=== PATIENT | male | born 1940 | race Caucasian/White ===

== ENCOUNTER 2020-04-21 06:53 | Outpatient (CLI) | payer MEDICARE, SELFPAY ==
[2020-04-21 07:39] LABS: Basophils Absolute Auto 0.1 K/mm3 (0.0-0.1); Basophils Percent Auto 1.1 % (0.2-1.2); Eosinophils Absolute Auto 0.3 K/mm3 (0-0.3); Eosinophils Percent Auto 4.2 % (0-4.4); Hematocrit 39.6 % (42.0-52.0); Hemoglobin 13.1 g/dL (14.0-18.0); Immature Granulocyte Absolute 0.03 K/mm3 (0.00-0.031); Immature Granulocyte Percent A 0.5 % (0-0.5); Lymphocytes Percent Auto 22.9 % (18.3-44.2); Mean Corpuscular HGB Conc 33.1 g/dl (32-36); Mean Corpuscular Hemoglobin 31.3 pg (26-34); Mean Corpuscular Volume 94.5 fl (80-100); Mean Platelet Volume 8.8 fl (7.4-10.4); Monocytes Absolute Auto 0.9 K/mm3 (0.1-0.6); Neutrophils Absolute Auto 3.4 K/mm3 (1.3-6.7); Neutrophils Percent Auto 56.3 % (45.5-73.1); Platelet Count Result 184 k/mm3 (150-375); Red Blood Count 4.19 M/mm3 (4.6-6.20); Red Cell Distribution Width 13.2 % (11.5-14.5); White Blood Count 6.1 K/mm3 (4.5-10.0)
[2020-04-21 08:02] LABS: Alanine Aminotransferase 18 U/L (4-50); Albumin Level 3.9 g/dL (3.5-5.1); Alkaline Phosphatase 93 U/L (38-126); Anion Gap 3 mmol/L (8-16); Aspartate Amino Transferase 31 U/L (17-59); Bilirubin,Total 1.3 mg/dL (0.2-1.3); Blood Urea Nitrogen 17 mg/dL (9-20); CRP 0.7 mg/dL (<1.0); Calcium 9.2 mg/dL (8.4-10.2); Carbon Dioxide 33 mmol/L (22-30); Chloride 102 mmol/L (98-107); Creatine Kinase 124 U/L (55-170); Estimated Glomerular Filt Rate > 60; Glucose 98 mg/dL (75-110); Potassium 4.8 mmol/L (3.4-5.0); Sodium 138 mmol/L (137-145)
[2020-04-21 08:19] LABS: Erythrocyte Sedimentation Rate 20 mm/hr (0-20)
[2020-04-21 08:26] LABS: Prostate Specific Antigen 1.4 ng/mL (< OR = 4.0)
[2020-04-21 09:39] LABS: Cholesterol 171 mg/dL (0-200); HDL Direct 86 mg/dL; Triglycerides 57 mg/dL (<150)
[2020-04-21 09:50] LABS: LDL Cholesterol Direct 66 mg/dL
[2020-04-21 12:49] LABS: Free T4 Free Thyroxine Reflex 1.05 ng/dL (0.78-2.19)
[2020-04-21 13:45] LABS: Total Triiodothyronine (T3) 1.32 NG/ML (0.97-1.69)
[2020-04-26 22:26] LABS: Anti Nuclear Antibody Titer 1:40 (Negative)
== END 2020-04-21 06:54 | disposition home or self-care (01) ==
PROVIDERS: PCP Family Medicine; Visit Provider Family Medicine
DX: M79.18 Myalgia, other site (principal); I48.0 Paroxysmal atrial fibrillation; G47.33 Obstructive sleep apnea (adult) (pediatric); M79.606 Pain in leg, unspecified; I47.1 Supraventricular tachycardia; Z12.5 Encounter for screening for malignant neoplasm of prostate; E78.5 Hyperlipidemia, unspecified
CPT/HCPCS: 36415; 80053; 80061; 82550; 84153; 84439; 84443; 84480; 85025; 85652; 86038; 86039; 86140; G0103

== ENCOUNTER → 2020-05-30 13:26 | Outpatient (CLI) | payer MEDICARE, SELFPAY ==
--- NOTE | ~2020-05-30 | XR_ITS ---
XR hip BI 2V w AP pelvis 05/30/2020 15:01 Indication: Osteoarthritis. Procedure: AP pelvis and 2 views of each hip Comparison: No prior studies for comparison. Findings: There is mild osteoarthritis of the hips which is symmetric. There are loose bodies lateral to the right hip. The pelvic rings are intact. Sacral foramen are symmetric. No acute fracture or tr aumatic malalignment. There are pelvic phleboliths. Normal mineralization. Sacral foramen are symmetr ic. Impression: 1: Mild symmetric osteoarthritis of the hips with loose bodies lateral to the right hip joint. Reviewed, dictated and finalized at location A. LING EXPERT Impression: 1: Mild symmetric osteoarthritis of the hips with loose bodies lateral to the r ight hip joint.
--- NOTE | ~2020-05-30 | XR_ITS ---
XR hand BI arthritis min 3V 05/30/2020 15:01 Indication: Osteoarthritis Procedure: 4 views of each hand Comparison: 04/29/2018 Findings: There is a foreign body in the left second finger overlying the proximal phalanx. There is mild osteoarthritis of the first MCP joint bilaterally. No acute free air or traumatic malalignment. There is mild osteoarthritis of the first CMC joints bilaterally. Impression: 1: Mild polyarticular osteoarthritis. 2: Small foreign body adjacent to the proximal phalanx of the left second finger. Reviewed, dictated and finalized at location A. EMIC SUPPORT ASSISTANT Impression: 1: Mild polyarticular osteoarthritis. 2: Small foreign body adjacent to the proximal phalanx of the left second fing er.
--- NOTE | ~2020-05-30 | XR_ITS ---
EXAMINATION: XR foot RT standing 2V EXAM DATE: 05/30/2020 15:01 INDICATION: M15.9 - Polyosteoarthritis, unspecified . TECHNIQUE: Frontal and lateral projections of the right foot standing. Correlation is made to contra lateral foot same date. FINDINGS: There is mild right-sided pes planus. There is mild polyarticular primary osteoarthritis. There are no acute fractures or dislocations identified. There is no subcutaneous gas. The soft tis ayad is unremarkable. There are no radiopaque foreign bodies. IMPRESSION: 1. Mild right foot polyarticular osteoarthritis. 2. Mild pes planus. Reviewed, dictated and finalized at location B. E COORDINATOR
--- NOTE | ~2020-05-30 | XR_ITS ---
XR knee RT min 4V, XR knee LT min 4V 05/30/2020 15:01 Indication: Polyarthritis Procedure: 4 views of each knee Comparison: No prior studies for comparison. Findings: There is moderate-severe bilateral osteoarthritis of the knees, medial compartments most af fected bilaterally. No acute fracture or traumatic malalignment. Normal mineralization. No foreign jay dies. Impression: 1: Moderate-severe bilateral osteoarthritis of the knees. 2: Small bilateral knee effusions. Reviewed, dictated and finalized at location A. PRESSURE BOILER TENDER Impression: 1: Moderate-severe bilateral osteoarthritis of the knees. 2: Small bilateral knee effusions. Impression: 1: Moderate-severe bilateral osteoarthritis of the knees. 2: Small bilateral knee effusions.
--- NOTE | ~2020-05-30 | XR_ITS ---
EXAMINATION: XR foot LT standing 2V EXAM DATE: 05/30/2020 15:01 INDICATION: M15.9 - Polyosteoarthritis, unspecified. TECHNIQUE: Frontal and lateral projections of the left foot standing. There is no prior study for c omparison. FINDINGS: Mild left-sided pes planus. There is mild polyarticular primary osteoarthritis. There are no bony erosions identified. There are no acute fractures or dislocations identified. There is no s ubcutaneous gas. The soft tissue is unremarkable. There are no radiopaque foreign bodies. IMPRESSION: 1. Mild polyarticular left foot osteoarthritis. 2. Mild pes planus. Reviewed, dictated and finalized at location B. REPATCHER
== END ==
PROVIDERS: Visit Provider Internal Medicine
DX: M18.0 Bilateral primary osteoarthritis of first carpometacarpal joints (principal); S60.451A Superficial foreign body of left index finger, initial encounter; M16.0 Bilateral primary osteoarthritis of hip; M24.051 Loose body in right hip; M19.072 Primary osteoarthritis, left ankle and foot; M19.071 Primary osteoarthritis, right ankle and foot; M21.41 Flat foot [pes planus] (acquired), right foot; M21.42 Flat foot [pes planus] (acquired), left foot; M17.12 Unilateral primary osteoarthritis, left knee; M25.462 Effusion, left knee; M25.461 Effusion, right knee; R76.8 Other specified abnormal immunological findings in serum
CPT/HCPCS: 73130; 73521; 73564; 73620

== ENCOUNTER 2020-06-01 09:06 | Outpatient (CLI) | payer MEDICARE, SELFPAY ==
[2020-06-01 09:46] LABS: Creatine Kinase 126 U/L (55-170)
[2020-06-01 09:55] LABS: Complement C3 99 mg/dL (88-165); Rheumatoid Factor < 8.6 IU/ML (<12)
[2020-06-04 03:39] LABS: Thyroid Peroxidase Antibodies <1 IU/mL (<9)
[2020-06-04 21:11] LABS: Hexagonal Phase Confirm Negative (Negative); Lupus dRVVT 1:1 Mix Interpreta Not Indicated; Lupus dRVVT Confirmation Negative (Negative); Lupus dRVVT Screen 55 sec (<=45); PTT-LA Screen 44 sec (<=40)
[2020-06-05 02:54] LABS: Aldolase 6.3 U/L (<=8.1)
[2020-06-05 11:28] LABS: SM Antibody <1.0; SM/RNP Antibody <1.0; SS-A <1.0; SS-B <1.0
[2020-06-05 13:50] LABS: Anti Cardio Antibody IgM <12 MPL (<=12); Anti Cardiolipin Antibody IgA <11 APL (<=11); Anti Cardiolipin Antibody IgG <14 GPL (<=14)
[2020-06-07 14:26] LABS: Thyroid Stimulating Immunoglob <89 % baseline (<140)
[2020-06-07 22:54] LABS: Anti Cyclic Citrullinated Pept <16 Units (<20)
== END 2020-06-01 09:07 | disposition home or self-care (01) ==
LOC: ANHLAB 09:12
PROVIDERS: PCP Family Medicine; Visit Provider Internal Medicine
DX: R76.8 Other specified abnormal immunological findings in serum (principal); M15.9 Polyosteoarthritis, unspecified
CPT/HCPCS: 36415; 82085; 82550; 84445; 85597; 85598; 85613; 85730; 86146; 86147; 86160; 86200; 86225; 86235; 86376; 86430

== ENCOUNTER 2020-08-28 11:57 | Outpatient (CLI) | payer MEDICARE, SELFPAY ==
--- NOTE | 2020-08-28 12:37 | ECHO_ITS ---
Patient Info Name: Jac Engel Age: 80 years : 1940 Gender: Male Ht: 70 in Wt: 180 lbs BSA: 2.02 m2 HR: 60 bpm BP: 133 / 80 mmHg Technical Quality: Good Exam Date: 08/28/2020 12:50 PM Exam Location: [facility] Patient Status: Outpatient Admit Date: 08/28/2020 Staff Ordering Physician: Jorgito Mayo DO Immigration Inspector: Joe Kelly RDCS, RT Attending Provider: Jorgito Mayo DO Referring Physician: Gael MOORE; Exam Type: CA echo doppler color flow Study Info Indications I34.1 - Nonrheumatic mitral (valve) prolapse Complete two-dimensional, color flow and Doppler transthoracic echocardiogram is performed. Strain analysis performed. Summary 1. Complete two-dimensional, color flow and Doppler transthoracic echocardiogram is performed. 2. Left ventricular chamber dimension is normal. 3. Left ventricular systolic function is normal, estimated at 60-65%. 4. The left ventricular diastolic function is normal. 5. E/e' 8 is minimally elevated. 6. Global longitudinal strain is normal at -20.3%. 7. Left atrial chamber dimension is moderately enlarged. 8. The mitral valve has moderate bileaflet prolapse. 9. There is mild mitral valve regurgitation. 10. There is mild tricuspid valve regurgitation. 11. No pulmonary hypertension, estimated pulmonary arterial systolic pressure is 36 mmHg. 12. There is trace pulmonic regurgitation. 13. Dilated inferior vena cava with <50% collapse upon inspiration consistent with significantly elevated right atrial pressure, 15 mmHg. Left Ventricle E/e' 8 is minimally elevated. Global longitudinal strain is normal at -20.3%. Left ventricular chamber dimension is normal. Left ventricular systolic function is normal, estimated at 60-65%. The left ventricular diastolic function is normal. Right Ventricle Right ventricular systolic function is normal and with normal TAPSE 3.2 cm. Right ventricular chamber dimension is normal. Left Atria Left atrial chamber dimension is moderately enlarged. Right Atria Right atrial chamber dimension is normal. Aortic Valve The aortic valve is trileaflet. There is no aortic valve stenosis. There is no aortic valve regurgitation. Pulmonic Valve There is trace pulmonic regurgitation. Mitral Valve The mitral valve has moderate bileaflet prolapse. There is no mitral valve stenosis. There is mild mitral valve regurgitation. Tricuspid Valve There is mild tricuspid valve regurgitation. No pulmonary hypertension, estimated pulmonary arterial systolic pressure is 36 mmHg. Pericardium/Pleural There is no pericardial effusion. Inferior Vena Cava Dilated inferior vena cava with <50% collapse upon inspiration consistent with significantly elevated right atrial pressure, 15 mmHg. Aorta The aortic root size at the sinus of Valsalva is normal. Left Ventricular Outflow Tract Name Value Normal LVOT 2D LVOT Diameter 2.0 cm LVOT Doppler LVOT Peak Gradient 4 mmHg LVOT Mean Gradient 2 mmHg LVOT VTI 22 cm LVOT VTI/AV VTI R
== END 2020-08-28 11:58 | disposition home or self-care (01) ==
PROVIDERS: PCP Family Medicine; Visit Provider Internal Medicine Cardiovascular Disease
DX: I34.0 Nonrheumatic mitral (valve) insufficiency (principal); I36.1 Nonrheumatic tricuspid (valve) insufficiency
CPT/HCPCS: 93306

== ENCOUNTER 2020-10-05 09:34 | Outpatient (CLI) | payer MEDICARE, SELFPAY ==
[2020-10-05 10:56] LABS: Total Triiodothyronine (T3) 0.96 NG/ML (0.97-1.69)
[2020-10-05 10:59] LABS: Free T4 Free Thyroxine 1.28 ng/mL (0.78-2.19)
== END 2020-10-05 09:35 | disposition home or self-care (01) ==
PROVIDERS: PCP Family Medicine; Visit Provider Internal Medicine Endocrinology, Diabetes & Metabolism
DX: E03.9 Hypothyroidism, unspecified (principal)
CPT/HCPCS: 36415; 84439; 84443; 84480

== ENCOUNTER 2020-11-16 06:55 | Outpatient (CLI) | payer MEDICARE, SELFPAY ==
[2020-11-16 08:36] LABS: Total Triiodothyronine (T3) 0.95 NG/ML (0.97-1.69)
== END 2020-11-16 06:56 | disposition home or self-care (01) ==
LOC: ANHLAB 06:58
PROVIDERS: PCP Family Medicine; Visit Provider Internal Medicine Endocrinology, Diabetes & Metabolism
DX: E03.9 Hypothyroidism, unspecified (principal)
CPT/HCPCS: 36415; 84439; 84443; 84480

== ENCOUNTER 2021-05-01 06:59 | Outpatient (CLI) | payer MEDICARE, SELFPAY ==
[2021-05-01 08:08] LABS: Basophils Absolute Auto 0.1 K/mm3 (0.0-0.1); Basophils Percent Auto 1.3 % (0.2-1.2); Eosinophils Absolute Auto 0.2 K/mm3 (0-0.3); Hematocrit 38.6 % (42.0-52.0); Hemoglobin 12.4 g/dL (14.0-18.0); Immature Granulocyte Absolute 0.02 K/mm3 (0.00-0.031); Immature Granulocyte Percent A 0.3 % (0-0.5); Lymphocytes Absolute Auto 1.26 K/mm3 (0.9-3.2); Mean Corpuscular HGB Conc 32.1 g/dl (32-36); Mean Corpuscular Hemoglobin 30.9 pg (26-34); Mean Corpuscular Volume 96.3 fl (80-100); Mean Platelet Volume 9.5 fl (7.4-10.4); Monocytes Absolute Auto 0.9 K/mm3 (0.1-0.6); Monocytes Percent Auto 14.7 % (2.6-8.5); Neutrophils Absolute Auto 3.6 K/mm3 (1.3-6.7); Neutrophils Percent Auto 59.7 % (45.5-73.1); Platelet Count Result 204 k/mm3 (150-375); Red Blood Count 4.01 M/mm3 (4.6-6.20); Red Cell Distribution Width 13.2 % (11.5-14.5)
[2021-05-01 08:17] LABS: Alanine Aminotransferase 21 U/L (4-50); Alkaline Phosphatase 99 U/L (38-126); Anion Gap 4 mmol/L (8-16); Aspartate Amino Transferase 36 U/L (17-59); Bilirubin,Total 1.5 mg/dL (0.2-1.3); Blood Urea Nitrogen 16 mg/dL (9-20); Calcium 9.3 mg/dL (8.4-10.2); Carbon Dioxide 30 mmol/L (22-30); Chloride 103 mmol/L (98-107); Cholesterol 157 mg/dL (0-200); Estimated Glomerular Filt Rate > 60; Glucose 90 mg/dL (65-110); HDL Direct 78 mg/dL; Potassium 4.3 mmol/L (3.4-5.0); Sodium 137 mmol/L (137-145); Triglycerides 48 mg/dL (<150)
[2021-05-01 08:28] LABS: LDL Cholesterol Direct 54 mg/dL
[2021-05-01 08:46] LABS: Prostate Specific Antigen 1.6 ng/mL (< OR = 4.0)
[2021-05-01 09:14] LABS: Vitamin D 25 Hydroxy 31.3 ng/mL
== END 2021-05-01 07:00 | disposition home or self-care (01) ==
PROVIDERS: PCP Family Medicine; Visit Provider Family Medicine
DX: E78.5 Hyperlipidemia, unspecified (principal); I48.0 Paroxysmal atrial fibrillation; Z00.00 Encounter for general adult medical examination without abnormal findings; E03.9 Hypothyroidism, unspecified; E55.9 Vitamin D deficiency, unspecified; Z12.5 Encounter for screening for malignant neoplasm of prostate
CPT/HCPCS: 36415; 80053; 80061; 82306; 84153; 84443; 85025; G0103

== ENCOUNTER 2021-07-11 11:14 | Outpatient (CLI) | payer MEDICARE, SELFPAY ==
[2021-07-11 12:05] LABS: Free T4 Free Thyroxine 1.82 ng/mL (0.78-2.19)
[2021-07-11 12:06] LABS: T4 Thyroxine 8.76 ug/dL (5.53-11.0)
[2021-07-11 12:20] LABS: Total Triiodothyronine (T3) 1.05 NG/ML (0.97-1.69)
[2021-07-14 07:50] LABS: Triiodothyronine T3 Free 2.8 pg/mL (2.3-4.2)
== END 2021-07-11 11:15 | disposition home or self-care (01) ==
PROVIDERS: PCP Family Medicine; Visit Provider Internal Medicine Endocrinology, Diabetes & Metabolism
DX: E03.9 Hypothyroidism, unspecified (principal); Z79.899 Other long term (current) drug therapy; E04.9 Nontoxic goiter, unspecified
CPT/HCPCS: 36415; 84436; 84439; 84443; 84480; 84481

== ENCOUNTER 2021-09-26 13:36 | Outpatient (CLI) | payer MEDICARE, SELFPAY ==
--- NOTE | 2021-09-26 13:53 | ECHO_ITS ---
Patient Info Name: Jac Engel Age: 81 years : 1940 Gender: Male Ht: 70 in Wt: 170 lbs BSA: 1.96 m2 HR: 71 bpm BP: 117 / 69 mmHg Technical Quality: Good Exam Date: 09/26/2021 2:12 PM Exam Location: [facility] Patient Status: Outpatient Admit Date: 09/26/2021 Staff Ordering Physician: Jorgito Mayo DO Tomographic Tech: Alison Howard RDCS Attending Provider: Jorgito Mayo DO Referring Physician: Gael MOORE; Exam Type: CA echo dop color flow w con Study Info Indications - non rheumatic mitral valve prolapse Complete two-dimensional, color flow and Doppler transthoracic echocardiogram is performed. Summary 1. Complete two-dimensional, color flow and Doppler transthoracic echocardiogram is performed. 2. Left ventricular chamber dimension is normal. 3. Left ventricular systolic function is normal, estimated at 65-70%. 4. The left ventricular diastolic function is grade II diastolic dysfunction. 5. E/e' 10 is mildly elevated. 6. Global longitudinal strain is normal at -23.6%. 7. Left atrial chamber dimension is moderately enlarged. 8. Right atrial chamber dimension is moderately enlarged. 9. The mitral valve has moderate bileaflet prolapse. 10. There is mild mitral valve regurgitation. 11. There is mild tricuspid valve regurgitation. 12. No pulmonary hypertension, estimated pulmonary arterial systolic pressure is 34 mmHg. 13. There is trace pulmonic regurgitation. 14. Normal inferior vena cava with <50% collapse upon inspiration consistent with elevated right atrial pressure, 10 mmHg. Left Ventricle E/e' 10 is mildly elevated. Global longitudinal strain is normal at -23.6%. Left ventricular chamber dimension is normal. Left ventricular systolic function is normal, estimated at 65-70%. The left ventricular diastolic function is grade II diastolic dysfunction. Right Ventricle Right ventricular chamber dimension is normal. Right ventricular systolic function is normal. Left Atria Left atrial chamber dimension is moderately enlarged. Right Atria Right atrial chamber dimension is moderately enlarged. Aortic Valve The aortic valve is trileaflet. There is no aortic valve stenosis. There is no aortic valve regurgitation. Pulmonic Valve There is trace pulmonic regurgitation. Mitral Valve The mitral valve has moderate bileaflet prolapse. There is no mitral valve stenosis. There is mild mitral valve regurgitation. Tricuspid Valve There is mild tricuspid valve regurgitation. No pulmonary hypertension, estimated pulmonary arterial systolic pressure is 34 mmHg. Pericardium/Pleural There is no pericardial effusion. Inferior Vena Cava Normal inferior vena cava with <50% collapse upon inspiration consistent with elevated right atrial pressure, 10 mmHg. Aorta The aortic root size at the sinus of Valsalva is normal. Left Ventricular Outflow Tract Name Value Normal LVOT 2D LVOT Diameter 2.09 cm LVOT Doppler LVOT Peak Gradient 8 mmHg LVOT Mean Gradient 4 mmHg LVOT VTI 24.75 cm
== END 2021-09-26 13:37 | disposition home or self-care (01) ==
PROVIDERS: PCP Family Medicine; Visit Provider Internal Medicine Cardiovascular Disease
DX: I34.0 Nonrheumatic mitral (valve) insufficiency (principal); I36.1 Nonrheumatic tricuspid (valve) insufficiency
CPT/HCPCS: 93306

== ENCOUNTER 2021-10-24 10:27 | Outpatient (CLI) | payer MEDICARE, SELFPAY ==
[2021-10-24 21:02] LABS: Basophils Absolute Auto 0.1 K/mm3 (0.0-0.1); Basophils Percent Auto 1.6 % (0.2-1.2); Eosinophils Absolute Auto 0.2 K/mm3 (0-0.3); Eosinophils Percent Auto 2.4 % (0-4.4); Hematocrit 39.3 % (42.0-52.0); Hemoglobin 12.1 g/dL (14.0-18.0); Immature Granulocyte Absolute 0.02 K/mm3 (0.00-0.031); Immature Granulocyte Percent A 0.3 % (0-0.5); Lymphocytes Absolute Auto 1.26 K/mm3 (0.9-3.2); Lymphocytes Percent Auto 18.8 % (18.3-44.2); Mean Corpuscular HGB Conc 30.8 g/dl (32-36); Mean Corpuscular Volume 97.3 fl (80-100); Mean Platelet Volume 10.1 fl (7.4-10.4); Monocytes Absolute Auto 0.8 K/mm3 (0.1-0.6); Monocytes Percent Auto 12.4 % (2.6-8.5); Neutrophils Absolute Auto 4.3 K/mm3 (1.3-6.7); Neutrophils Percent Auto 64.5 % (45.5-73.1); Platelet Count Result 182 k/mm3 (150-375); Red Blood Count 4.04 M/mm3 (4.6-6.20); Red Cell Distribution Width 13.9 % (11.5-14.5); White Blood Count 6.7 K/mm3 (4.5-10.0)
[2021-10-24 21:54] LABS: Folic Acid 7.3 ng/mL (2.76->20)
[2021-10-25 00:27] LABS: Iron 100 ug/dL (49-181)
[2021-10-25 00:36] LABS: Percent Iron Saturation 32 % (20-50)
[2021-10-25 17:30] LABS: IFOB Positive Control Positive; Immunochemical Fecal Occult Bl Negative (N)
== END 2021-10-24 10:28 | disposition home or self-care (01) ==
PROVIDERS: PCP Family Medicine; Visit Provider Family Medicine
DX: D64.9 Anemia, unspecified (principal)
CPT/HCPCS: 36415; 82274; 82607; 82728; 82746; 83540; 83550; 85025

== ENCOUNTER 2021-11-21 11:07 | Outpatient (CLI) | payer MEDICARE, SELFPAY ==
[2021-11-21 12:25] LABS: Free T4 Free Thyroxine 1.47 ng/mL (0.78-2.19)
[2021-11-24 06:35] LABS: Triiodothyronine T3 Free 2.8 pg/mL (2.3-4.2)
== END 2021-11-21 11:08 | disposition home or self-care (01) ==
PROVIDERS: PCP Family Medicine; Visit Provider Internal Medicine Endocrinology, Diabetes & Metabolism
DX: E03.9 Hypothyroidism, unspecified (principal); E04.9 Nontoxic goiter, unspecified
CPT/HCPCS: 36415; 84439; 84443; 84481

== ENCOUNTER 2022-01-03 20:02 | Outpatient (NON) | payer MEDICARE, SELFPAY | END 2022-01-03 20:03 | disposition home or self-care (01) | LOC: ANHLAB 20:03 | PROVIDERS: PCP Family Medicine; Visit Provider Nurse Practitioner | DX: R31.9 Hematuria, unspecified (principal) | CPT/HCPCS: 87086 ==

== ENCOUNTER → 2022-01-30 08:04 | Outpatient (CLI) | payer MEDICARE, SELFPAY ==
--- NOTE | ~2022-01-30 | CT_ITS ---
EXAMINATION: CT abdomen pelvis wo/w con DATE: 01/30/2022 08:57 INDICATION: Gross hematuria TECHNIQUE: Computed tomography (CT) of the abdomen and pelvis was performed without and subsequently with 130 CC Omnipaque 350 intravenous contrast. Automated exposure control and iterative reconstructi on technique were employed. Exam dose: 1463.63 mGy-cm total exam DLP. COMPARISON: None. FINDINGS: There is peripheral septal soft tissue thickening and cystic change in the lower lung zones . No consolidation is noted. Cardiomegaly. No pericardial or pleural effusion. Small sliding hiatal hernia. The gallbladder is unremarkable. No bile duct dilatation. No hepatic, splenic, pancreatic space-occup rigo mass lesion or pancreatic duct dilatation. 3 cm right renal cyst. No suspicious solid renal space-occupying mass lesion or filling defect of the renal collecting structures, ureters or urinary bladder is noted. No intraluminal filling defect of the urinary bladder or urinary bladder wall thickening is noted. There is prostate enlargement. Normal caliber of the abdominal aorta. No intraperitoneal or retroperitoneal or pelvic mass lesion or adenopathy or ascites. Normal appendix. There are numerous diverticula in particular the sigmoid colon. No CT evidence of diverticulitis. No bowel obstruction, bowel wall thickening, pneumatosis or intraperitoneal free air is detected. Degenerative spurring of the lower thoracic spine. Severe degenerative disease throughout the lumbar spine. Prominent degenerative change at the apophys eal joints. No suspicious osteolytic or osteoblastic lesions are noted. IMPRESSION: Cardiomegaly Small sliding hiatal hernia 3 cm right renal cyst No urinary tract calculus, obstruction or mass lesion is noted Prostate enlargement Diverticulosis of the colon Reviewed, dictated and finalized at Location A. Reviewed, dictated and finalized at location A. TEACHER
[2022-01-30 08:33] LABS: Estimated Glomerular Filt Rate > 60
== END ==
PROVIDERS: PCP Family Medicine; Visit Provider Urology
DX: R31.0 Gross hematuria (principal); K44.9 Diaphragmatic hernia without obstruction or gangrene; N28.1 Cyst of kidney, acquired; N40.0 Benign prostatic hyperplasia without lower urinary tract symptoms; K57.30 Diverticulosis of large intestine without perforation or abscess without bleeding; I51.7 Cardiomegaly
CPT/HCPCS: 74178; Q9967

== ENCOUNTER 2022-02-21 09:18 | Outpatient (CLI) | payer MEDICARE, SELFPAY ==
--- NOTE | 2022-02-21 09:28 | ECG_ITS ---
Measurements Intervals [place] Rate: 61 P: 43 CO: 185 QRS: 28 QRSD: 145 T: 26 QT: 460 QTc: 465 Interpretive Statements SINUS RHYTHM RIGHT BUNDLE BRANCH BLOCK POSSIBLE LATERAL MYOCARDIAL INFARCTION [30 ms Q WAVE IN I/aVL/V5/V6], OF INDETERMINATE AGE ABNORMAL ECG NO PREVIOUS ECG AVAILABLE FOR COMPARISON Electronically Signed On 02-21-2022 11:27:10 OUTSIDE PRODUCTION INSPECTOR by Dc Dickinson M.D.
[2022-02-21 09:52] LABS: Basophils Absolute Auto 0.1 K/mm3 (0.0-0.1); Eosinophils Absolute Auto 0.2 K/mm3 (0-0.3); Eosinophils Percent Auto 2.5 % (0-4.4); Hematocrit 39.4 % (42.0-52.0); Hemoglobin 12.6 g/dL (14.0-18.0); Immature Granulocyte Absolute 0.03 K/mm3 (0.00-0.031); Immature Granulocyte Percent A 0.4 % (0-0.5); Lymphocytes Absolute Auto 1.33 K/mm3 (0.9-3.2); Lymphocytes Percent Auto 19.3 % (18.3-44.2); Mean Corpuscular Hemoglobin 30.7 pg (26-34); Mean Corpuscular Volume 95.9 fl (80-100); Mean Platelet Volume 9.4 fl (7.4-10.4); Monocytes Percent Auto 15.1 % (2.6-8.5); Neutrophils Absolute Auto 4.3 K/mm3 (1.3-6.7); Neutrophils Percent Auto 61.7 % (45.5-73.1); Platelet Count Result 158 k/mm3 (150-375); Red Blood Count 4.11 M/mm3 (4.6-6.20); Red Cell Distribution Width 13.9 % (11.5-14.5); White Blood Count 6.9 K/mm3 (4.5-10.0)
[2022-02-21 10:11] LABS: Anion Gap 6 mmol/L (8-16); Blood Urea Nitrogen 18 mg/dL (9-20); Calcium 9.1 mg/dL (8.4-10.2); Carbon Dioxide 29 mmol/L (22-30); Chloride 104 mmol/L (98-107); Estimated Glomerular Filt Rate > 60; Glucose 61 mg/dL (65-110); Sodium 139 mmol/L (137-145)
[2022-02-21 10:16] LABS: INR 1.5; Prothrombin Time 17.4 Seconds (11.1-14.7)
[2022-02-21 10:17] LABS: Partial Thromboplastin Time 42.4 SECONDS (22.3-36.8)
== END 2022-02-21 09:19 | disposition home or self-care (01) ==
PROVIDERS: PCP Family Medicine; Visit Provider Urology
DX: C67.9 Malignant neoplasm of bladder, unspecified (principal); I48.0 Paroxysmal atrial fibrillation; Z01.818 Encounter for other preprocedural examination; I45.10 Unspecified right bundle-branch block
CPT/HCPCS: 36415; 80048; 85025; 85610; 85730; 87086; 93005

== ENCOUNTER 2022-02-26 00:30 | Day surgery (SDC) | payer MEDICARE, SELFPAY ==
[2022-02-18 09:31] VITALS: BMI 24.7
--- NOTE | 2022-02-26 08:01 | WPDANESEPPF ---
Anes - Initial Pre Proc Eval Procedure: Operation Date: 02/26/22 09:45 Proposed Procedures p Screening Colonoscopy - Jin Rodarte MD Date/Time: 02/26/22 08:01 Surgeon: Jin Rodarte MD Pre Op Diagnosis: Hx of colon polyps Patient Data Age: 81 Gender: M Height: 1.78 m Weight: 78.2 kg Allergies Allergy/AdvReac Type Severity Reaction Status Date / Time No Known Allergies Allergy Verified 02/26/22 08:38 Home Medications Medication Instructions Recorded Confirmed Type amiodarone 200 mg tablet 100 mg PO .Every other day #30 tabs 12/13/20 02/19/22 Rx cholecalciferol (vitamin D3) 50 50 mcg PO DAILY 05/16/21 02/19/22 History mcg (2,000 unit) capsule rivaroxaban 20 mg tablet (Xarelto) See Rx Instructions .Route 05/21/21 02/26/22 Rx .COMPLEX #90 tabs capsaicin 0.025 % topical cream 1 applic topical BID PRN Pain 11/21/21 02/19/22 History gabapentin 100 mg tablet 200 mg PO TID PRN Pain 01/03/22 02/19/22 History sodium,potassium,mag sulfates 17.5 See Rx Instructions PO .COMPLEX 01/15/22 02/19/22 Rx gram-3.13 gram-1.6 gram oral soln #354 mL (Suprep Bowel Prep Kit) flaxseed 1 ea PO DAILY 02/19/22 02/19/22 History Patient hx anesthesia problems: none Family hx anesthesia problems: none Results Review: All pre-operative results and documents have been reviewed as part of the pre-operative evaluation. [facility] Past Medical History Medical History JAMILAH positive Chronic lower back pain Hypothyroidism Mitral valve prolapse SHAWN (obstructive sleep apnea) PAF (paroxysmal atrial fibrillation) Peripheral neuropathy PSVT (paroxysmal supraventricular tachycardia) 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 Surgical History Surgical History H/O elbow surgery H/O left inguinal hernia repair (~03/1977) H/O right inguinal hernia repair (~12/2001) H/O varicose vein ligation and stripping 2019 History of appendectomy (~1957) History of tonsillectomy (~1950) Family History Family History Sibling Family history of cardiovascular disease Family history of sleep apnea Family history of malignant neoplasm of stomach Family history of malignant neoplasm of gastrointestinal tract Family history of malignant neoplasm of breast Family history of lymphoma Grandparent Family history of malignant neoplasm Family history of primary malignant neoplasm of liver Father Family history of malignant neoplasm of gastrointestinal tract Other Carcinoma of colon Social History Social History Smoking status: Never smoker Second hand tobacco smoke exposure: No Alcohol intake: current Alcohol use details: OCCASIONALLY Substance use: never Substance use type: does not use Living arrangements: with family Additional living arrangements comments: SPOUSE Gender identity (if verbalized by the patient): Male Spiritual care concerns: No Anes - Eval Final PreProcedure Day of Procedure 02/26/22 08:01 Patient weight: normal Heart: regular rate and rhythm Lungs: clear to auscultation and normal air movement Airway: Mallampati scale class II Neurological: alert and oriented Last oral intake: >/= 8 hours ASA classification: III Emergent: no Anesthetic plan: proceed Anesthesia type and monitoring: general GIVS and standard monitoring Results Review: All pre-operative results and documents have been reviewed as part of the pre-operative evaluation. Informed Consent: The patient's anesthetic plan and its attendant risks and benefits were discussed with the patient/family/POA. Questions were solicited and answers provided to the satisfaction of the patient/family/POA.
[2022-02-26 08:40] VITALS: BP 139/73; PULSE 55; RESP 18; TEMP 36.3; O2SAT 100
[2022-02-26] MEDS: LACTATED RINGERS 1,000 ML 150 ML IV CONT (09:04)
--- NOTE | 2022-02-26 09:21 | PM.HPGS ---
History of Present Illness History of Present Illness Consent: Risks, benefits, and alternatives have been discussed and questions answered. Patient agrees to proceed with procedure. Chief complaint: Hx of colon polyps Narrative: Jac Engel is a 81 year old male Presents for screening colonoscopy. Patient has a prior history of colon polyps. Family history is significant his father had colon polyps in several brothers have had colon cancer. Patient reports his current weight appetite and bowel movements are normal. Patient denies abdominal pain. He has had no bleeding. Most recent colonoscopy 2019. Review of Systems Review of Systems: Review of systems noncontributory. [facility] Past Medical History Medical History JAMILAH positive Chronic lower back pain Hypothyroidism Mitral valve prolapse SHAWN (obstructive sleep apnea) PAF (paroxysmal atrial fibrillation) Peripheral neuropathy PSVT (paroxysmal supraventricular tachycardia) 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 Surgical History Surgical History H/O elbow surgery H/O left inguinal hernia repair (~03/1977) H/O right inguinal hernia repair (~12/2001) H/O varicose vein ligation and stripping 2018 History of appendectomy (~1957) History of tonsillectomy (~1950) Family History Family History Sibling Family history of cardiovascular disease Family history of sleep apnea Family history of malignant neoplasm of stomach Family history of malignant neoplasm of gastrointestinal tract Family history of malignant neoplasm of breast Family history of lymphoma Grandparent Family history of malignant neoplasm Family history of primary malignant neoplasm of liver Father Family history of malignant neoplasm of gastrointestinal tract Other Carcinoma of colon Social History Social History Smoking status: Never smoker Second hand tobacco smoke exposure: No Alcohol intake: current Alcohol use details: OCCASIONALLY Substance use: never Substance use type: does not use Living arrangements: with family Additional living arrangements comments: SPOUSE Gender identity (if verbalized by the patient): Male Spiritual care concerns: No Meds Home Medications and Allergies Home Medications Medication Instructions Recorded Confirmed Type amiodarone 200 mg tablet 100 mg PO .Every other day #30 tabs 12/13/20 02/19/22 Rx cholecalciferol (vitamin D3) 50 50 mcg PO DAILY 05/16/21 02/19/22 History mcg (2,000 unit) capsule rivaroxaban 20 mg tablet (Xarelto) See Rx Instructions .Route 05/21/21 02/26/22 Rx .COMPLEX #90 tabs capsaicin 0.025 % topical cream 1 applic topical BID PRN Pain 11/21/21 02/19/22 History gabapentin 100 mg tablet 200 mg PO TID PRN Pain 01/03/22 02/19/22 History sodium,potassium,mag sulfates 17.5 See Rx Instructions PO .COMPLEX 01/15/22 02/19/22 Rx gram-3.13 gram-1.6 gram oral soln #354 mL (Suprep Bowel Prep Kit) flaxseed 1 ea PO DAILY 02/19/22 02/19/22 History Allergies Allergy/AdvReac Type Severity Reaction Status Date / Time No Known Allergies Allergy Verified 02/26/22 08:38 Vital Signs Vital Signs - 24 hr 02/26/22 08:40 Temperature 97.3 F L Pulse Rate 55 L Respiratory Rate 18 Blood Pressure 139/73 Pulse Oximetry 100 Oxygen Delivery Room Air Exam Narrative: Physical exam reveals patient to be alert. Vital signs stable. HEENT exam is unremarkable. Patient is anicteric. Lungs are clear to auscultation and percussion. Heart is without murmur or extra sounds. Abdomen bowel sounds present soft nontender with no organomegaly. Digital external rectal exam is normal. Assessment and Plan Assessment and plan (1) History of colon polyps: [place]
[2022-02-26 10:07] VITALS: BP 105/70; PULSE 57; RESP 18; O2SAT 100
[2022-02-26 10:17] VITALS: BP 115/76; PULSE 56; RESP 16; O2SAT 100
[2022-02-26 10:27] VITALS: BP 114/80; PULSE 54; RESP 15; O2SAT 100
== END 2022-02-26 10:38 | disposition home or self-care (01) ==
PROVIDERS: PCP Family Medicine; Visit Provider Internal Medicine Gastroenterology
PROC: 0DJD8ZZ Inspection of Lower Intestinal Tract, Via Natural or Artificial Opening Endoscopic (ICD-10-PCS; CPT 45378; principal; 2022-02-26 09:45)
DX: Z12.11 Encounter for screening for malignant neoplasm of colon (principal); K64.8 Other hemorrhoids; K57.30 Diverticulosis of large intestine without perforation or abscess without bleeding; Z86.010 Personal history of colon polyps; Z80.0 Family history of malignant neoplasm of digestive organs; I48.0 Paroxysmal atrial fibrillation; E03.9 Hypothyroidism, unspecified; G47.33 Obstructive sleep apnea (adult) (pediatric); I47.1 Supraventricular tachycardia; G62.9 Polyneuropathy, unspecified; I34.1 Nonrheumatic mitral (valve) prolapse; Z79.01 Long term (current) use of anticoagulants
CPT/HCPCS: G0105; 36415; 80048; 85025; 85610; 85730; 87086; 93005; J2704; J7120

== ENCOUNTER 2022-03-05 00:45 | Day surgery (SDC) | payer MEDICARE, SELFPAY ==
[2022-02-19 09:31] VITALS: BMI 25.0
--- NOTE | 2022-02-19 10:01 | PC.NURSE ---
Report to the Outpatient Waiting Room, entrance under the green pavilion located off [facility], at time _10:30AM on date ___03/05/22____. Planned Procedure Time: ___12:30PM . Time changes happen often and if your time is changed the preop area will call you the afternoon before. - You and your visitor will be asked to self-screen and do not enter if you have any COVID symptoms. - Only one visitor is requested with a max of two and NO children visitors are allowed at this time. - The patient visitor may be requested to leave or wait in car when not with patient due to distancing restrictions. - A mask is optional within the hospital. Patients may have clear liquids (water, carbonated beverages, clear teas, apple juice) until 3 hours prior to surgery with a maximum of 20 ounces. - No food from midnight until time of surgery Take the following medications with a SIP of water the morning of surgery: ___AMIODARONE, GABAPENTIN Medications to discontinue per physician ___HOLD XERALTO PER DR DAVIS(PATIENT CALLING OFFICE), HOLD ALL VITAMINS/SUPPLEMENTS 3 DAYS PRE-OP- LAST DOSE 03/01/22____ Please no make-up, nail japanese, hairspray, perfume, deodorant, or body powder the day of surgery. No jewelry (including any body piercings) or valuables the day of surgery, leave them at home. Please take a shower or bath the night before, or the morning of, surgery with an antibacterial soap. Wear comfortable, loose fitting clothing. Children are encouraged to wear pajamas. - Jewelry must be removed prior to entering the operating room. Rings and piercings that are not removed may be cut off. - The hospital will not accept responsibility for valuables. - Please leave all valuables, including medications, at home the day of surgery. If you are going home after surgery, a licensed pile driver operator helper must drive you home. - NO public transportation without another adult if you receive anesthesia. - We recommend that an adult stay with you for 24 hours following discharge. - We also recommend that you do not drive, make important decision, drink alcoholic beverages, or take any drugs that were not prescribed by your health care provider for at least 24 hours after your discharge time. Follow any additional instructions given to you from your surgeon. If you or anyone in your household have experienced Covid symptoms in the past week, please notify your surgeon or the nurse liaison at the phone number below for possible testing. Telephone instructions given to __PATIENT & WIFE and asked if any additional questions and then verbalized understanding. Patient advised to call surgeon office or pre surgery nurse liaison [phone] if any additional questions.
--- NOTE | 2022-03-04 14:06 | WPDANESEPPF ---
Anes - Initial Pre Proc Eval Procedure: Operation Date: 03/05/22 12:30 Proposed Procedures p Cystoscopy, Trans Urethral Resection Bladder Tumor - Ubaldo Delatorre MD Date/Time: 03/04/22 14:06 Surgeon: Ubaldo Delatorre MD Pre Op Diagnosis: gross hematuria , bladder cancer Patient Data Age: 81 Gender: M Height: 1.78 m Weight: 79 kg Allergies Allergy/AdvReac Type Severity Reaction Status Date / Time No Known Allergies Allergy Verified 02/26/22 08:38 Home Medications Medication Instructions Recorded Confirmed Type amiodarone 200 mg tablet 100 mg PO .Every other day #30 tabs 12/13/20 02/19/22 Rx cholecalciferol (vitamin D3) 50 50 mcg PO DAILY 05/16/21 02/19/22 History mcg (2,000 unit) capsule rivaroxaban 20 mg tablet (Xarelto) See Rx Instructions .Route 05/21/21 02/26/22 Rx .COMPLEX #90 tabs capsaicin 0.025 % topical cream 1 applic topical BID PRN Pain 11/21/21 02/19/22 History gabapentin 100 mg tablet 200 mg PO TID PRN Pain 01/03/22 02/19/22 History sodium,potassium,mag sulfates 17.5 See Rx Instructions PO .COMPLEX 01/15/22 02/19/22 Rx gram-3.13 gram-1.6 gram oral soln #354 mL (Suprep Bowel Prep Kit) flaxseed 1 ea PO DAILY 02/19/22 02/19/22 History Patient hx anesthesia problems: none Family hx anesthesia problems: none Results Review: All pre-operative results and documents have been reviewed as part of the pre-operative evaluation. [facility] Past Medical History Medical History JAMILAH positive Chronic lower back pain Hypothyroidism Mitral valve prolapse SHAWN (obstructive sleep apnea) PAF (paroxysmal atrial fibrillation) Peripheral neuropathy PSVT (paroxysmal supraventricular tachycardia) 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 Surgical History Surgical History H/O elbow surgery H/O left inguinal hernia repair (~03/1977) H/O right inguinal hernia repair (~12/2001) H/O varicose vein ligation and stripping 2019 History of appendectomy (~1957) History of tonsillectomy (~1950) Family History Family History Sibling Family history of cardiovascular disease Family history of sleep apnea Family history of malignant neoplasm of stomach Family history of malignant neoplasm of gastrointestinal tract Family history of malignant neoplasm of breast Family history of lymphoma Grandparent Family history of malignant neoplasm Family history of primary malignant neoplasm of liver Father Family history of malignant neoplasm of gastrointestinal tract Other Carcinoma of colon Social History Social History Smoking status: Never smoker Second hand tobacco smoke exposure: No Alcohol intake: current Alcohol use details: OCCASIONALLY Substance use: never Substance use type: does not use Living arrangements: with family Additional living arrangements comments: SPOUSE Gender identity (if verbalized by the patient): Male Spiritual care concerns: No Anes - Eval Final PreProcedure Day of Procedure 03/04/22 14:06 Patient weight: normal Heart: regular rate and rhythm Lungs: clear to auscultation and normal air movement Airway: Mallampati scale class II Neurological: alert and oriented Last oral intake: >/= 8 hours ASA classification: III Emergent: no Anesthetic plan: proceed Anesthesia type and monitoring: general LMA and standard monitoring Results Review: All pre-operative results and documents have been reviewed as part of the pre-operative evaluation. Informed Consent: The patient's anesthetic plan and its attendant risks and benefits were discussed with the patient/family/POA. Questions were solicited and answers provided to the satisfaction of the patient/family/POA.
[2022-03-05] VITALS (10 sets, daily range): BP systolic 126–166; BP diastolic 76–97; PULSE 55–65; RESP 12–18; TEMP 36.1–36.6; O2SAT 94–100
[2022-03-05] MEDS: LACTATED RINGERS 1,000 ML 30 ML IV CONT (11:04)
[2022-03-05 11:24] LABS: INR 1.1; Prothrombin Time 13.8 Seconds (11.1-14.7)
[2022-03-05 11:25] LABS: Partial Thromboplastin Time 35.3 SECONDS (22.3-36.8)
--- NOTE | 2022-03-05 11:50 | WPDHPUPDATE1 ---
History and Physical Update Update Date/Time: 03/05/22 11:50 History and Physical has been reviewed, including an updated exam of the patient. There are NO changes in the patient's condition. Risks, benefits, and alternatives have been discussed and questions answered. Patient agrees to proceed with procedure.
[2022-03-05] MEDS: ceFAZolin 2 GM/D5W 50 ML 2 GM/50 ML BAG IVPB (12:20)
[2022-03-05] MEDS: LIDOCAINE HCL 2% GEL UROJET 10 ML PKG MUCOUS MEM (12:51)
--- NOTE | 2022-03-05 12:51 | P.OP_ITS ---
Procedure Note - Detailed Date of Procedure 03/05/22 Pre-op Diagnosis gross hematuria , bladder lesion Post-op Diagnosis Same Procedure Performed Cystoscopy, urethral dilation, transurethral section of bladder lesion proximally 2 cm area along right lateral and floor of bladder Surgeon Ubaldo Delatorre MD Anesthesia General Description of Procedure Patient is taken the operative suite correctly identified. Once anesthesia was obtained was placed in dorsal lithotomy position and prepped and draped usual sterile fashion. The meatus was dilated up to 26 Wallisian. Twenty-four Wallisian resectoscope sheath was inserted into the bladder direct vision. There were no papillary growths of the fact that he has some irregularity of the lining along the right lateral wall in the floor area. We went ahead and resected some of this area and fulgurated the edges. This was sent for analysis. There was good hemostasis at termination procedure. 2% viscous lidocaine was inserted urethra. Patient taken recovery stable condition he will call for path results in 1 week. Please send a copy this report to my office Estimated Blood Loss 0 Drains No Packing No Pathology Yes Complications No immediate complications Condition Stable Disposition PACU
[2022-03-05] MEDS: fentaNYL CITRATE INJ (*CRX) 100 MCG/2 ML VIAL 25 MCG IV PUSH ×4 (13:28→13:45)
== END 2022-03-05 15:21 | disposition home or self-care (01) ==
PROVIDERS: PCP Family Medicine; Visit Provider Urology
PROC: 0TBB8ZZ Excision of Bladder, Via Natural or Artificial Opening Endoscopic (ICD-10-PCS; CPT 52234; principal; 2022-03-05 12:30)
DX: C67.2 Malignant neoplasm of lateral wall of bladder (principal); I48.0 Paroxysmal atrial fibrillation; E03.9 Hypothyroidism, unspecified; I34.1 Nonrheumatic mitral (valve) prolapse; I47.1 Supraventricular tachycardia; G47.33 Obstructive sleep apnea (adult) (pediatric); G62.9 Polyneuropathy, unspecified; Z79.01 Long term (current) use of anticoagulants
CPT/HCPCS: 52234; 36415; 85610; 85730; 88305; A9270; J0690; J1100; J2405; J2704; J3010; J7120

== ENCOUNTER 2022-03-06 15:33 | Emergency (ER) | payer MEDICARE, SELFPAY ==
[2022-03-06 16:02] VITALS: BP 147/85; PULSE 65; RESP 16; O2SAT 100
--- NOTE | 2022-03-06 16:15 | ED.GENADULT ---
HPI - General Adult General Chief complaint: Urogenital-Male Stated complaint: s/p bladder surgery, urinary retention Time Seen by Provider: 03/06/22 16:02 History of Present Illness HPI narrative: 81-year-old male with history of BPH presented emerged department for evaluation of urinary retention. Patient reports he had a bladder biopsy yesterday by Dr. Delatorre. Patient reports yesterday he did have suprapubic pain but was able to pass urine. Patient states this morning he was able to pass a small amount of urine but had decreased urination through the afternoon. Patient states he has been drinking more water and has had worsening lower abdominal swelling increased abdominal pressure and still has not made urine. Patient did make contact with Dr. Delatorre and he was advised to present to the emergency department. Shortly after arrival to the emergency department a Farias catheter was placed and patient quickly had approximately 400 mL of retained urine. Related Data Home Medications Medication Instructions Recorded Confirmed cholecalciferol (vitamin D3) 50 50 mcg PO DAILY 05/16/21 02/19/22 mcg (2,000 unit) capsule capsaicin 0.025 % topical cream 1 applic topical BID PRN Pain 11/21/21 02/19/22 gabapentin 100 mg tablet 200 mg PO TID PRN Pain 01/03/22 02/19/22 flaxseed 1 ea PO DAILY 02/19/22 02/19/22 Allergies Allergy/AdvReac Type Severity Reaction Status Date / Time No Known Allergies Allergy Verified 03/05/22 11:15 Review of Systems Review of Systems: CONSTITUTIONAL: Denies fever, chills, or sweats. EYES: Denies visual changes, redness, or discharge. ENT: Denies rhinorrhea, congestion, sore throat, or otalgia. CARDIOVASCULAR: Denies chest pain, palpitations, or edema. RESPIRATORY: Denies cough or dyspnea. GASTROINTESTINAL: Denies abdominal pain, nausea, vomiting, or diarrhea. GENITOURINARY: See HPI SKIN: Denies rash or itching. MUSCULOSKELETAL: Denies back pain, joint pain, or myalgia. NEUROLOGIC: Denies headache, numbness, or weakness. [facility] Past Medical History Medical History JAMILAH positive Chronic lower back pain Hypothyroidism Mitral valve prolapse SHAWN (obstructive sleep apnea) PAF (paroxysmal atrial fibrillation) Peripheral neuropathy PSVT (paroxysmal supraventricular tachycardia) 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 Surgical History Surgical History H/O elbow surgery H/O left inguinal hernia repair (~03/1977) H/O right inguinal hernia repair (~12/2001) H/O varicose vein ligation and stripping 2019 History of appendectomy (~1957) History of tonsillectomy (~1950) Family History Family History Sibling Family history of cardiovascular disease Family history of sleep apnea Family history of malignant neoplasm of stomach Family history of malignant neoplasm of gastrointestinal tract Family history of malignant neoplasm of breast Family history of lymphoma Grandparent Family history of malignant neoplasm Family history of primary malignant neoplasm of liver Father Family history of malignant neoplasm of gastrointestinal tract Other Carcinoma of colon Social History Social History Smoking status: Never smoker Second hand tobacco smoke exposure: No Alcohol intake: current Alcohol use details: OCCASIONALLY Substance use: never Substance use type: does not use Additional living arrangements comments: SPOUSE Gender identity (if verbalized by the patient): Male Spiritual care concerns: No Exam Narrative: APPEARANCE: Well appearing, no pain, no distress, well-nourished. HEAD: normocephalic, atraumatic. EYES: PERRLA/EOMI, conjunctivae clear. NOSE: Normal no drainage THROAT: Pharynx clear, no exudate. NECK: Supple. No adenopathy, no
[2022-03-06 17:24] LABS: Add Urine Microscopic? YES; Appearance Urine Clear (Clear); Bilirubin Urine Negative (Negative); Blood Urine 3+ (Negative); Color Urine Yellow (Yellow); Glucose Urine UA Negative (Negative); Ketones Urine Negative (Negative); Leukocyte Esterase Ur Trace LEU/UL (Negative); Nitrate Urine Negative (Negative); Protein Urine 2+ mg/dL (Negative); Specific Grav Ur >= 1.030 (1.001-1.035); Urobilinogen Urine 0.2 mg/dL (<2.0); pH Urine 5.5 (5.0-9.0)
[2022-03-06 17:32] LABS: Bacteria Urine Trace /hpf; Mucus Urine Rare /lpf; RBC Urine >75 /hpf (0-2); Squamous Epithelial Cell Urine Rare /hpf (Few); WBC Urine 51-75 /hpf
[2022-03-06] MEDS: TAMSULOSIN HCL 0.4 MG CAPSULE PO (18:03)
[2022-03-06] MEDS: CEPHALEXIN 250 MG CAPSULE PO (18:03)
--- NOTE | 2022-03-06 18:20 | PC.NURSE ---
pt did not receive, was scanned prior to admin pt already on Bactrim, dr bray stated not to have pt take medication
== END 2022-03-06 19:10 | disposition home or self-care (01) ==
PROVIDERS: Emergency Provider Emergency Medicine; PCP Family Medicine
DX: N40.1 Benign prostatic hyperplasia with lower urinary tract symptoms (principal); R33.8 Other retention of urine; N39.0 Urinary tract infection, site not specified; Z98.890 Other specified postprocedural states; I48.0 Paroxysmal atrial fibrillation; I34.1 Nonrheumatic mitral (valve) prolapse; E03.9 Hypothyroidism, unspecified; G47.33 Obstructive sleep apnea (adult) (pediatric); G62.9 Polyneuropathy, unspecified; Z79.01 Long term (current) use of anticoagulants
CPT/HCPCS: 51702; 81001; 87086; 99283; A9270

== ENCOUNTER 2022-03-08 15:21 | Emergency (ER) | payer MEDICARE, SELFPAY ==
--- NOTE | ~2022-03-08 | XR_ITS ---
EXAMINATION: XR hand LT min 3V, XR hand RT min 3V DATE: 03/08/2022 22:43 INDICATION: Bilateral thumb pain TECHNIQUE: 1. Posteroanterior, oblique and lateral views of the left hand were obtained. 2. Posteroanterior, oblique and lateral views of the right hand were obtained. COMPARISON: None. FINDINGS: Bone alignment is normal at the bilateral hands. No fractures. Polyarticular osteoarthritis moderate severity at the bilateral triscaphe and first carpometacarpal joints and mild at several of the bilat eral interphalangeal joints with distal predominance. There is also severe osteoarthritis at the left wrist joint and mild osteoarthritis at the left wrist joint. Unchanged tiny metallic foreign body in the soft tissues at the palmar/radial aspect of the left second proximal phalanx. IMPRESSION: 1. Polyarticular osteoarthritis at the bilateral hands and wrists, moderate severity at the bilateral triscaphe and first carpal metacarpal joints and severe at the left wrist joint. Reviewed, dictated and finalized at location A. NICAL PROJECT COORDINATOR IMPRESSION: 1. Polyarticular osteoarthritis at the bilateral hands and wrists, moderate sev erity at the bilateral triscaphe and first carpal metacarpal joints and severe at the left wrist joint.
[2022-03-08 15:55] VITALS: BP 140/72; PULSE 78; RESP 18; TEMP 37.1; O2SAT 100
[2022-03-08 20:30] VITALS: BP 147/92; PULSE 78; RESP 18; TEMP 36.8; O2SAT 97
[2022-03-08 22:00] VITALS: BP 152/97; PULSE 79; RESP 18; TEMP 36.6; O2SAT 97
--- NOTE | 2022-03-08 22:26 | ED.GENADULT ---
HPI - General Adult General Chief complaint: Weakness Stated complaint: bladder sx friday Time Seen by Provider: 03/08/22 21:13 History of Present Illness HPI narrative: This is a 81-year-old male presenting ED with a chief complaint of bilateral thumb pain. Patient says he woke up from sleep this morning with pain in his thumbs. Patient has a history of osteoarthritis and uses his hands to transfer himself as he has bad peripheral neuropathy. Patient also notes that he had a bladder surgery earlier this week. the patient says that has been going well although he has not been moving around very much due to pain. Patient denies fever, trauma, neck injury. He denies history of gout. Patient took his tramadol when he woke up but did not take his afternoon dose. Patient denies any other complaints at this time. Related Data Home Medications Medication Instructions Recorded Confirmed cholecalciferol (vitamin D3) 50 50 mcg PO DAILY 05/16/21 02/19/22 mcg (2,000 unit) capsule capsaicin 0.025 % topical cream 1 applic topical BID PRN Pain 11/21/21 02/19/22 gabapentin 100 mg tablet 200 mg PO TID PRN Pain 01/03/22 02/19/22 flaxseed 1 ea PO DAILY 02/19/22 02/19/22 Allergies Allergy/AdvReac Type Severity Reaction Status Date / Time No Known Allergies Allergy Verified 03/05/22 11:15 Review of Systems Review of Systems: CONSTITUTIONAL: Denies night sweats. EYES: No eye pain ENT: Denies rhinorrhea CARDIOVASCULAR: Denies palpitations RESPIRATORY: Denies hemoptysis GASTROINTESTINAL: Denies hematemesis GENITOURINARY: Denies hematuria. SKIN: Denies rash MUSCULOSKELETAL: Denies myalgia. NEUROLOGIC: Denies weakness. PSYCHIATRIC: Denies delusions [facility] Past Medical History Medical History JAMILAH positive Chronic lower back pain Hypothyroidism Mitral valve prolapse SHAWN (obstructive sleep apnea) PAF (paroxysmal atrial fibrillation) Peripheral neuropathy PSVT (paroxysmal supraventricular tachycardia) 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 Surgical History Surgical History H/O elbow surgery H/O left inguinal hernia repair (~03/1977) H/O right inguinal hernia repair (~12/2001) H/O varicose vein ligation and stripping 2019 History of appendectomy (~1957) History of tonsillectomy (~1950) Family History Family History Sibling Family history of cardiovascular disease Family history of sleep apnea Family history of malignant neoplasm of stomach Family history of malignant neoplasm of gastrointestinal tract Family history of malignant neoplasm of breast Family history of lymphoma Grandparent Family history of malignant neoplasm Family history of primary malignant neoplasm of liver Father Family history of malignant neoplasm of gastrointestinal tract Other Carcinoma of colon Social History Social History Smoking status: Never smoker Second hand tobacco smoke exposure: No Alcohol intake: current Alcohol use details: OCCASIONALLY Substance use: never Substance use type: does not use Additional living arrangements comments: SPOUSE Gender identity (if verbalized by the patient): Male Spiritual care concerns: No Exam Narrative: APPEARANCE: No apparent distress. Head: atraumatic. EYES: EOMI, NOSE: Atraumatic NECK: Trachea midline RESPIRATORY: No increased rate of breathing CARDIOVASCULAR: RRR, +1 pitting edema lower extremities. ABDOMINAL: Non-distended MUSCULOSKELETAl: No obvious deformities Focal exam of the patient's thumbs revealed no overlying skin changes or erythema. Tenderness over the base of the thumb. Slightly warm to touch. Cap refill is less than 2 seconds. Strength is intact. Patient has enlarged knuckles from chronic are osteo
[2022-03-08] MEDS: traMADol HCL (*CRX) 50 MG TABLET PO (22:32)
[2022-03-08] MEDS: ACETAMINOPHEN 500 MG TABLET 1000 MG PO (22:33)
[2022-03-08 22:50] VITALS: BP 142/79; PULSE 76; RESP 18; TEMP 36.8; O2SAT 98
--- NOTE | 2022-03-08 22:50 | PC.NURSE ---
Patient spouse and daughter in room complaints of vital signs not staying on patients arm. Explained to patient family that patient vital signs have been obtained (in their presence) and that I didnt leave the blood pressure cuff on patient due to extreme pain to hands while blood pressure cuff is pumping. Patient spouse verbalized understanding.
[2022-03-08 23:55] VITALS: BP 133/76; PULSE 74; RESP 18; TEMP 36.9; O2SAT 95
== END 2022-03-08 23:57 | disposition home or self-care (01) ==
PROVIDERS: Emergency Provider Emergency Medicine; PCP Family Medicine
DX: M79.645 Pain in left finger(s) (principal); M79.644 Pain in right finger(s); K59.00 Constipation, unspecified; G62.9 Polyneuropathy, unspecified; I48.0 Paroxysmal atrial fibrillation; I34.1 Nonrheumatic mitral (valve) prolapse; E03.9 Hypothyroidism, unspecified; G47.33 Obstructive sleep apnea (adult) (pediatric); M19.042 Primary osteoarthritis, left hand; M19.041 Primary osteoarthritis, right hand; M19.032 Primary osteoarthritis, left wrist; M19.031 Primary osteoarthritis, right wrist; M18.9 Osteoarthritis of first carpometacarpal joint, unspecified
CPT/HCPCS: 73130; 99284; A9270

== ENCOUNTER 2022-03-09 23:37 | Inpatient (IN) | payer MEDICARE, SELFPAY ==
--- NOTE | ~2022-03-09 | CT_ITS ---
EXAMINATION: CT abdomen pelvis wo/w con DATE: 03/10/2022 13:16 INDICATION: Abdominal pain and tenderness post urologic surgery TECHNIQUE: Computed tomography (CT) of the abdomen and pelvis was performed without intravenous contr ast. CT of the abdomen and pelvis was then performed with a total of 130 mL Omnipaque 350 intravenous contrast using a double-bolus technique for simultaneous opacification of the renal parenchyma and r enal collecting system. The dose-length product (DLP) was 801.41 mGy-cm. Automated exposure control a nd iterative reconstruction technique were employed. COMPARISON: 01/30/2022 FINDINGS: Cardiomegaly is noted. There is mild pulmonary edema in the visualized lung bases. There ar e trace pleural effusions. A small sliding hiatal hernia is noted. There is mild nodularity of the li beena surface. The gallbladder is distended which may be due to fasting state. The spleen and adrenal g lands are normal. A calcification in the tail of the pancreas likely reflects chronic pancreatitis. N o stones are identified in the kidneys, ureters, or bladder. No hydronephrosis or hydroureter. There is a 3.0 cm cyst of the right kidney. The left kidney is unremarkable. There is gas in the urinary bl adder. There appears to be an approximately 18 mm mm defect in the right lateral bladder wall with a small amount of adjacent extravasated urine. No pathologically enlarged abdominal or pelvic lymph nod es are identified. There is no free intraperitoneal gas or evidence of bowel obstruction. A Farias cat heter is noted in the bladder. There is a left inguinal hernia containing fat. There is moderate lumb ar spondylosis. A moderate volume of colonic stool is present. IMPRESSION: 1. Apparent 18 mm defect in the right lateral bladder wall, likely site of recent bladder tumor resec tion, with a small amount of adjacent extravasated urine. Reviewed, dictated and finalized at location A. TRYMAN IMPRESSION: 1. Apparent 18 mm defect in the right lateral bladder wall, likely site of rece nt bladder tumor resection, with a small amount of adjacent extravasated urine.
[2022-03-09 23:41] VITALS: BP 121/99; PULSE 74; RESP 18; TEMP 36.9; O2SAT 100
--- NOTE | 2022-03-10 00:29 | ED.MALEGU ---
HPI - Male Genitourinary General Chief complaint: Urogenital-Male Stated complaint: cath full of blood Time Seen by Provider: 03/09/22 23:57 History of Present Illness HPI Narrative: Patient is a 81-year-old male who presents ER with hematuria. He noticed some discoloration this afternoon and then tonight upon going to bed he noticed that it was bright red. No urinary retention. No blood clots. Patient recently had a cystoscopy with urethral dilatation and bladder tumor excision on 03/05/2022. He restarted his Xarelto on 03/08/2022. No fevers or chills or sweats. No lower abdominal pain. Related Data Home Medications Medication Instructions Recorded Confirmed cholecalciferol (vitamin D3) 50 50 mcg PO DAILY 05/16/21 02/19/22 mcg (2,000 unit) capsule capsaicin 0.025 % topical cream 1 applic topical BID PRN Pain 11/21/21 02/19/22 gabapentin 100 mg tablet 200 mg PO TID PRN Pain 01/03/22 02/19/22 flaxseed 1 ea PO DAILY 02/19/22 02/19/22 Allergies Allergy/AdvReac Type Severity Reaction Status Date / Time No Known Allergies Allergy Verified 03/05/22 11:15 Review of Systems Review of Systems: All systems reviewed & are unremarkable except as noted in HPI and below Constitutional: Constitutional: Denies chills, Denies fatigue and Denies fever(s) Cardiovascular: Cardiovascular: Denies chest pain and Denies radiating jaw, neck or arm pain Respiratory: Respiratory: Denies cough and Denies dyspnea Gastrointestinal: Gastrointestinal: Denies abdominal pain, Denies nausea and Denies vomiting Genitourinary: Genitourinary: Reports hematuria, Denies dysuria, Denies penile discharge and Denies testicular pain [facility] Past Medical History Medical History JAMILAH positive Chronic lower back pain Hypothyroidism Mitral valve prolapse SHAWN (obstructive sleep apnea) PAF (paroxysmal atrial fibrillation) Peripheral neuropathy PSVT (paroxysmal supraventricular tachycardia) 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 Surgical History Surgical History H/O elbow surgery H/O left inguinal hernia repair (~03/1977) H/O right inguinal hernia repair (~12/2001) H/O varicose vein ligation and stripping 2019 History of appendectomy (~1957) History of tonsillectomy (~1950) Family History Family History Sibling Family history of cardiovascular disease Family history of sleep apnea Family history of malignant neoplasm of stomach Family history of malignant neoplasm of gastrointestinal tract Family history of malignant neoplasm of breast Family history of lymphoma Grandparent Family history of malignant neoplasm Family history of primary malignant neoplasm of liver Father Family history of malignant neoplasm of gastrointestinal tract Other Carcinoma of colon Social History Social History Smoking status: Never smoker Second hand tobacco smoke exposure: No Alcohol intake: current Alcohol use details: OCCASIONALLY Substance use: never Substance use type: does not use Additional living arrangements comments: SPOUSE Gender identity (if verbalized by the patient): Male Spiritual care concerns: No Exam Narrative: GENERAL: Well-appearing, well-nourished, and in no acute distress. HEAD: Normocephalic, atraumatic. EYES: PERRL and EOMI. CHEST: Clear to auscultation. No respiratory distress. HEART: Regular rate and rhythm. Normal peripheral pulses. ABDOMEN: Soft, nontender, nondistended. EXTREMITIES: Normal range of motion. 1+ edema. SKIN: Warm, dry, no rash. NEURO: Alert and oriented x3. PSYCH: Normal mood and affect. Course Course Emergency Course: CBI initiated. Some clots were removed. When clamped it still becomes dark blood however it is much multiple earlier. Discus
[2022-03-10 00:46] LABS: Basophils Absolute Auto 0.1 K/mm3 (0.0-0.1); Eosinophils Absolute Auto 0.2 K/mm3 (0-0.3); Eosinophils Percent Auto 2.8 % (0-4.4); Hematocrit 34.7 % (42.0-52.0); Hemoglobin 11.5 g/dL (14.0-18.0); Immature Granulocyte Absolute 0.03 K/mm3 (0.00-0.031); Immature Granulocyte Percent A 0.4 % (0-0.5); Lymphocytes Absolute Auto 1.09 K/mm3 (0.9-3.2); Lymphocytes Percent Auto 16.3 % (18.3-44.2); Mean Corpuscular HGB Conc 33.1 g/dl (32-36); Mean Corpuscular Hemoglobin 30.9 pg (26-34); Mean Corpuscular Volume 93.3 fl (80-100); Mean Platelet Volume 9.3 fl (7.4-10.4); Monocytes Absolute Auto 1.1 K/mm3 (0.1-0.6); Monocytes Percent Auto 17.1 % (2.6-8.5); Neutrophils Absolute Auto 4.2 K/mm3 (1.3-6.7); Neutrophils Percent Auto 62.4 % (45.5-73.1); Platelet Count Result 182 k/mm3 (150-375); Red Blood Count 3.72 M/mm3 (4.6-6.20); Red Cell Distribution Width 13.3 % (11.5-14.5); White Blood Count 6.7 K/mm3 (4.5-10.0)
[2022-03-10 00:56] LABS: INR 2.9; Prothrombin Time 29.7 Seconds (11.1-14.7)
[2022-03-10 00:56] LABS: Anion Gap 4 mmol/L (8-16); Blood Urea Nitrogen 19 mg/dL (9-20); Calcium 8.7 mg/dL (8.4-10.2); Carbon Dioxide 27 mmol/L (22-30); Chloride 97 mmol/L (98-107); Estimated CRCL calculation 67 ml/min; Estimated Glomerular Filt Rate > 60; Glucose 113 mg/dL (65-110); Potassium 4.1 mmol/L (3.4-5.0); Sodium 128 mmol/L (137-145)
[2022-03-10 00:57] LABS: Appearance Urine Clear (Clear); Bilirubin Urine Negative (Negative); Blood Urine 3+ (Negative); Glucose Urine UA Trace mg/dL (Negative); Ketones Urine 1+ mg/dL (Negative); Leukocyte Esterase Ur 2+ LEU/UL (Negative); Nitrate Urine Positive (Negative); Protein Urine 3+ mg/dL (Negative); pH Urine 6.5 (5.0-9.0)
[2022-03-10 00:57] LABS: Partial Thromboplastin Time 71.4 SECONDS (22.3-36.8)
[2022-03-10 00:59] LABS: Mucus Urine Rare /lpf; RBC Urine >75 /hpf (0-2); WBC Urine 31-50 /hpf
[2022-03-10 01:04] LABS: Add Urine Microscopic? YES; Color Urine Dark Red (Yellow)
[2022-03-10 03:29] VITALS: BP 132/74; PULSE 77; RESP 16; TEMP 36.1; O2SAT 98
[2022-03-10 05:30] VITALS: BP 124/76; PULSE 72; RESP 18; O2SAT 96
[2022-03-10 06:15] LABS: Influenza A QL RT-PCR Negative (Negative); Influenza B QL RT-PCR Negative (Negative); SARS-CoV-2 RNA PCR Negative
[2022-03-10 07:17] VITALS: BP 137/75; PULSE 97; RESP 18; O2SAT 96
--- NOTE | 2022-03-10 09:16 | ADMGEN ---
This patient, Jac Engel, was admitted to 3 Med Surg Room 319-01. Patient/family oriented to hospital policies and general routines including ID bracelet, bed and alarms, visiting hours, pain management, procedures, bathroom and other care routines, personal items, smoking policy, room service/diet, and visiting hours. Information on how to activate the Rapid Response Team has been discussed. Patient/Family are encouraged to report perceived risks to care and to ask questions if they do not understand what they are told or what they should do.
[2022-03-10 09:17] VITALS: BMI 25.1
--- NOTE | 2022-03-10 09:27 | WPDURCON ---
Assessment and Plan Assessment and plan (1) Hematuria: Code(s): R31.9 - Hematuria, unspecified Status: Acute Assessment and Plan: 1. Continue CBI, urine appears to be clearing based on report from patient and review of chart. 2. Agree with holding Xarelto at this time. 3. CT urogram now given abdominal tenderness, there are no signs of peritonitis, however patient reports TTP of lower quadrants. 4. NPO p MN in case clot evacuation needed. Urology Consult Note HPI Date Seen: 03/10/22 Requesting Physician: John Grady MD Primary Care Provider: Laurie Bryan MD Consult Narrative Narrative: Jac Engel is a 81 year old male who presented overnight with hematuria requiring initiation of continuous bladder irrigation in the ER. He underwent TURBT with Dr. Delatorre on Friday of last week, restarted his Xarelto on Friday. He has required a Farias catheter for retention since his procedure. Review of Systems Constitutional: Constitutional: Reports no additional constitutional complaints Eyes: Eyes: Reports no additional eye complaints ENT: Reports system reviewed and no additional complaints, except as documented Respiratory: Respiratory: Reports no additional respiratory complaints Gastrointestinal: Gastrointestinal: Reports no additional gastrointestinal complaints Genitourinary: Genitourinary: Reports as per HPI and Reports hematuria Musculoskeletal: Musculoskeletal: Reports as per HPI Integumentary/Breasts: Skin/Breast: Reports system reviewed and no additional complaints, except as docu Neurologic: Reports system reviewed and no additional complaints, except as documented Psychiatric: Psychiatric: Reports no additional psychiatric complaints [facility] Past Medical History Medical History JAMILAH positive Chronic lower back pain Hypothyroidism Mitral valve prolapse SHAWN (obstructive sleep apnea) PAF (paroxysmal atrial fibrillation) Peripheral neuropathy PSVT (paroxysmal supraventricular tachycardia) 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 Surgical History Surgical History H/O elbow surgery H/O left inguinal hernia repair (~03/1977) H/O right inguinal hernia repair (~12/2001) H/O varicose vein ligation and stripping 2019 History of appendectomy (~1957) History of tonsillectomy (~1950) Family History Family History Sibling Family history of cardiovascular disease Family history of sleep apnea Family history of malignant neoplasm of stomach Family history of malignant neoplasm of gastrointestinal tract Family history of malignant neoplasm of breast Family history of lymphoma Grandparent Family history of malignant neoplasm Family history of primary malignant neoplasm of liver Father Family history of malignant neoplasm of gastrointestinal tract Other Carcinoma of colon Social History Social History Smoking status: Never smoker Second hand tobacco smoke exposure: No Alcohol intake: current Alcohol use details: OCCASIONALLY Substance use: never Substance use type: does not use Additional living arrangements comments: SPOUSE Gender identity (if verbalized by the patient): Male Spiritual care concerns: No Meds Home Medications and Allergies Home Medications Medication Instructions Recorded Confirmed Type amiodarone 200 mg tablet 100 mg PO .Every other day #30 tabs 12/13/20 02/19/22 Rx cholecalciferol (vitamin D3) 50 50 mcg PO DAILY 05/16/21 02/19/22 History mcg (2,000 unit) capsule capsaicin 0.025 % topical cream 1 applic topical BID PRN Pain 11/21/21 02/19/22 History gabapentin 100 mg tablet 200 mg PO TID PRN Pain 01/03/22 02/19/22 History sodium,potassium,mag sulfates 17.5 See Rx Instruct
--- NOTE | 2022-03-10 10:00 | PM.IMHP ---
H&P: HPI History of Present Illness Date/Time: 03/10/22 11:47 Chief Complaint: blood in the urine Narrative: Patient is 81-year-old male with past medical history of hypothyroidism, mitral valve prolapse, SHAWN, peripheral neuropathy who presented to the ED with complaints of hematuria. Patient stated that he had a TURP done last Friday. He stated that he has not been able to void on his own and had a catheter since. He also stated that he was recently in the ED because his hands hurt he could lift himself off the chair to get himself moving around. He then said that he is back with bloody urine. He stated that he went to go empty the bag and he noticed that the color change to more of a brown color. He did ask his which she thought of and she 2 also thought it was blood. Patient does take Xarelto and thinks that his last dose was Friday however he does seem to have his days a little confused. He also stated that Friday was his best day and he was doing well he was able to get around move around. He denied any chest pain, shortness a breath, sweats, fevers, lightheadedness, dizziness, weakness, nausea, vomiting, diarrhea, constipation. He did state that he has had a little bit of chills since he has been in the hospital however seems to be his normal. He does state that he has little bit of pain in his lower abdomen however cannot give me any details about it. He also stated his last bowel movement was before his procedure last Friday. He also stated that he has had an increased appetite and has been eating and doing well since the bloody urine. Patient is being admitted to the hospitalist service as an inpatient Review of Systems Review of Systems: All systems reviewed & are unremarkable except as noted in HPI and below PMFSH Past Medical History Medical History (Updated 03/10/22 @ 11:56 by RIMMA Lion) JAMILAH positive Anemia Bilateral lower extremity pain Chronic lower back pain Family hx of colon cancer Hematuria History of colon polyps Hypothyroidism Mitral valve prolapse On amiodarone therapy SHAWN (obstructive sleep apnea) PAF (paroxysmal atrial fibrillation) Peripheral neuropathy PSVT (paroxysmal supraventricular tachycardia) 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 Surgical History Surgical History H/O elbow surgery H/O left inguinal hernia repair (~03/1977) H/O right inguinal hernia repair (~12/2001) H/O varicose vein ligation and stripping 2019 History of appendectomy (~1957) History of tonsillectomy (~1950) Family History Family History Sibling Family history of cardiovascular disease Family history of sleep apnea Family history of malignant neoplasm of stomach Family history of malignant neoplasm of gastrointestinal tract Family history of malignant neoplasm of breast Family history of lymphoma Grandparent Family history of malignant neoplasm Family history of primary malignant neoplasm of liver Father Family history of malignant neoplasm of gastrointestinal tract Other Carcinoma of colon Social History Social History (Updated 03/10/22 @ 11:52 by RIMMA Lion) Social History: patient lives at home with his Katy Samuels. Katy Samuels will be his surrogate if needed. He also stated that he has a living well. He does have 3 children. He denies having any pets. He wishes to be a full code for now. Smoking status: Never smoker Second hand tobacco smoke exposure: No Alcohol intake: current Drinks per week: 0 Alcohol use details: OCCASIONALLY only through special events Substance use: never Substance use type: does not use Lack of Transportation: No Lack of Food: Never True Current Housing: I Have Housing Concerned About Future Housing: No Difficulty Paying Gas/Electric Bills: No Difficulty Paying for Me
[2022-03-10 10:48] LABS: NT Pro B Type Natriuretic Pept 538 pg/mL (5-100)
[2022-03-10 14:00] VITALS: BP 153/89; PULSE 66; RESP 20; TEMP 35.9; O2SAT 96
[2022-03-10] MEDS: ACETAMINOPHEN 325 MG TABLET 650 MG PO ×2 (17:04→21:59)
[2022-03-10] MEDS: DOCUSATE SODIUM 100 MG CAPSULE PO (21:59)
[2022-03-10 22:00] VITALS: BP 136/73; PULSE 69; RESP 18; TEMP 36.6; O2SAT 100
[2022-03-11] MEDS: HYDROcodone/acetaminophen (*CRX) 5-325 MG TABLET 1 TAB PO (03:30)
[2022-03-11 05:54] VITALS: BP 138/68; PULSE 81; RESP 18; TEMP 36.5; O2SAT 98
[2022-03-11 06:50] LABS: Alanine Aminotransferase 16 U/L (6-50); Albumin Level 3.6 g/dL (3.5-5.1); Alkaline Phosphatase 81 U/L (38-126); Anion Gap 3 mmol/L (8-16); Aspartate Amino Transferase 33 U/L (17-59); Bilirubin,Total 0.8 mg/dL (0.2-1.3); Blood Urea Nitrogen 12 mg/dL (9-20); Calcium 8.3 mg/dL (8.4-10.2); Carbon Dioxide 27 mmol/L (22-30); Chloride 103 mmol/L (98-107); Estimated CRCL calculation 67 ml/min; Estimated Glomerular Filt Rate > 60; Glucose 102 mg/dL (65-110); Potassium 4.1 mmol/L (3.4-5.0); Sodium 133 mmol/L (137-145)
--- NOTE | 2022-03-11 08:32 | WPDUROPN2 ---
Progress Note: A&P Assessment and Plan (1) Hematuria: Code(s): R31.9 - Hematuria, unspecified Status: Acute Assessment and Plan: resolved. If urine remains clear can cap inflow of CBI and send home with catheter. I would wait to restart anticoagulation for 3 or 4 days. I discussed with family and patient that the urine may alternate between bloody and clear. as long as the catheter is draining there is no need for intervention (2) History of bladder cancer: Code(s): Z85.51 - Personal history of malignant neoplasm of bladder Status: Acute (3) Extraperitoneal rupture of bladder: Code(s): N32.89 - Other specified disorders of bladder Status: Acute Assessment and Plan: home with Farias catheter x1 week. Outpatient follow-up with Dr. Delatorre Subjective Subjective Date/Time Seen: 03/11/22 08:32 urine is clear with the CBI off discussed with patient and family member Exam Narrative: no acute distress normal breathing Farias catheter with clear yellow urine and CBI on abdomen soft without rebound or guarding Objective Data Vital Signs Vital Signs: Vital Signs - 24 hr 03/10/22 14:00 03/10/22 22:00 03/11/22 00:23 Temperature 96.6 F L 98 F Pulse Rate 66 69 Respiratory Rate 20 18 Blood Pressure 153/89 H 136/73 Pulse Oximetry 96 100 Oxygen Delivery CPAP 03/11/22 05:54 Temperature 97.7 F Pulse Rate 81 Respiratory Rate 18 Blood Pressure 138/68 Pulse Oximetry 98 Oxygen Delivery Intake/Output Intake/Output: Intake & Output 03/08/22 03/09/22 03/10/22 03/11/22 23:59 23:59 23:59 23:59 Intake Total 740 300 Output Total 1650 25107 Balance -910 -[id number] Meds/Results Medications: Active Medications Generic Name Dose Route Start Last Admin Trade Name Freq PRN Reason Stop Dose Admin Acetaminophen 650 mg 03/10/22 12:09 03/10/22 21:59 Acetaminophen 325 Mg Tablet PO 650 mg Q4H PRN Administration Mild Pain (1-3) or Fever Hydrocodone Bitart/Acetaminophen 1 tab 03/10/22 12:09 03/11/22 03:30 Hydrocodone/Acetaminophen (*Crx) 5-325 Mg Tablet PO 1 tab Q4H PRN Administration Moderate Pain (4-10) Amiodarone HCl 100 mg 03/11/22 09:00 Amiodarone Hcl 100 Mg Tablet PO Q48H [facility] Bisacodyl 10 mg 03/10/22 12:12 Bisacodyl 10 Mg Suppository RECTAL DAILY PRN constipation Docusate Sodium 100 mg 03/10/22 21:00 03/10/22 21:59 Docusate Sodium 100 Mg Capsule PO 100 mg Q12HR MANUEL Administration Gabapentin 200 mg 03/10/22 13:00 03/10/22 17:02 Gabapentin 100 Mg Capsule PO Not Given TID [facility] Ceftriaxone Sodium/Dextrose 1 gm in 50 mls @ 100 mls/hr 03/10/22 14:00 03/10/22 17:00 Rocephin 1 Gm/D5w 50 Ml IVPB 100 mls/hr Q24H MANUEL Administration Ondansetron HCl 4 mg 03/10/22 05:36 Ondansetron Inj 4 Mg/2 Ml Vial IV PUSH Q4H PRN Nausea Senna 8.6 mg 03/11/22 09:00 Sennosides 8.6 Mg Tablet PO DAILY [facility] Tamsulosin HCl 0.4 mg 03/11/22 09:00 Tamsulosin Hcl 0.4 Mg Capsule PO DAILY [facility] Vitamin D 2,000 units 03/11/22 09:00 Cholecalciferol 1,000 Units Tablet PO DAILY [facility] Radiology Results: ITS Impressions Abdomen/Pelvis CT 03/10/22 13:54 IMPRESSION: 1. Apparent 18 mm defect in the right lateral bladder wall, likely site of recent bladder tumor resection, with a small amount of adjacent extravasated urine. ADDENDUM: 03/10/22 3051 The bladder defect and adjacent extravasated urine appear to be extraperitoneal in location. This was discussed with Dr. Jone Glass MD at 1445 hours on 03/10/2022. Labs Labs: Laboratory Results - last 24 hr 03/10/22 03/11/22 00:38 06:24 Sodium 133 L Potassium 4.1 Chloride 103 Carbon Dioxide 27 Anion Gap 3 L BUN 12 D Creatinine 0.80 Estim Creat Clear Calc 67 Estimated GFR > 60 Glucose 102 Calcium 8.3 L Magnesium 2.0 Total Bilirubin
--- NOTE | 2022-03-11 09:30 | P.DS_ITS ---
DS: Admitting Diagnosis Discharge Date 03/11/22929 Admitting Diagnosis hematuria DS: Discharge Diagnosis Discharge Diagnosis (1) Hematuria: Code(s): R31.9 - Hematuria, unspecified Status: Acute Assessment and Plan: * TURBT last Friday * urinary catheter has been in place * noted blood in the urine * CBI has been started * urology consulted * trend urine output * H&H 11.5/34.7 * CT of the abdomen and pelvis ordered and pending * hold Xarelto for now * NPO after midnight for possible procedure (2) Peripheral neuropathy: Code(s): G62.9 - Polyneuropathy, unspecified Status: Acute Assessment and Plan: * continue gabapentin 200 mg t.i.d. * Trend pain * adjust therapy as indicated (3) Hyperlipidemia, unspecified: Code(s): E78.5 - Hyperlipidemia, unspecified Status: Acute Assessment and Plan: * Does not appear to be on any lipid reducing medications * Lipid panel in the am * Initiate therapy if indicated (4) PAF (paroxysmal atrial fibrillation): Code(s): I48.0 - Paroxysmal atrial fibrillation Status: Acute Assessment and Plan: * Chronic and history of Afib * Continue amiodarone, hold the Xarelto for now * Appears the he has been in SR since Jan. * Continue to trend HR (5) Diastolic heart failure: Code(s): I50.30 - Unspecified diastolic (congestive) heart failure Status: Acute Assessment and Plan: * Echo from September showed EF of 60-65% with a grade 2 diastolic disfunction * Chronic diastolic heart failure not in exacerbation * 3+ pitting edema bilaterally * Trend urine output * Daily weights * Adjust therapy as indicated DS: Summary Hospital Course Hospital Course: patient is 81-year-old male has history of hypothyroidism mitral valve prolapse, SHAWN, peripheral neuropathy who presented the ED with complaints of hematuria. Patient does have a chronic Farias catheter and noticed getting darker the day went on. Patient did have a procedure done with Urology last Friday and restarted his anticoagulation last Friday. patient was started on CBI neurology was consulted. CT of the abdomen pelvis did not show any further defects, However does show postoperative changes. Neurology did go see the patient explained that the patient will see intermittent bleeding in the urine. CBI has been turned off and urine has been clear. Patient currently feels okay and labs are stable. Patient denies chest pain shortness a breath, nausea diarrhea, sweats, fevers, chills. Patient has been able to get out of bed and is doing well. UA did appear infectious however urine culture came back with no growth. Patient is being discharged home with a Farias catheter will need to follow up with Urology as indicated. Patient is stable for discharge per labs and vital signs. Patient and his who was on the phone was given discharge instructions, and signs to watch for when to call or return to the ED. He also reiterated and was able to review the instructions that were given to him by the urologist. Patient and both verbalized understanding. Status at Discharge Functional status at discharge: independent ambulation Overall status at discharge: patient is progressing back to baseline Time Spent with Patient Time attestation: Total time spent providing and/or coordinating dis
--- NOTE | 2022-03-11 09:30 | PM.DS ---
DS: Admitting Diagnosis Discharge Date 03/11/2230 Admitting Diagnosis hematuria DS: Discharge Diagnosis Discharge Diagnosis (1) Hematuria: Code(s): R31.9 - Hematuria, unspecified Status: Acute Assessment and Plan: TURBT last Friday urinary catheter has been in place noted blood in the urine CBI has been started urology consulted trend urine output H&H 11.5/34.7 CT of the abdomen and pelvis ordered and pending hold Xarelto for now NPO after midnight for possible procedure (2) Peripheral neuropathy: Code(s): G62.9 - Polyneuropathy, unspecified Status: Acute Assessment and Plan: continue gabapentin 200 mg t.i.d. Trend pain adjust therapy as indicated (3) Hyperlipidemia, unspecified: Code(s): E78.5 - Hyperlipidemia, unspecified Status: Acute Assessment and Plan: Does not appear to be on any lipid reducing medications Lipid panel in the am Initiate therapy if indicated (4) PAF (paroxysmal atrial fibrillation): Code(s): I48.0 - Paroxysmal atrial fibrillation Status: Acute Assessment and Plan: Chronic and history of Afib Continue amiodarone, hold the Xarelto for now Appears the he has been in SR since Jan. Continue to trend HR (5) Diastolic heart failure: Code(s): I50.30 - Unspecified diastolic (congestive) heart failure Status: Acute Assessment and Plan: Echo from September showed EF of 60-65% with a grade 2 diastolic disfunction Chronic diastolic heart failure not in exacerbation 3+ pitting edema bilaterally Trend urine output Daily weights Adjust therapy as indicated DS: Summary Hospital Course Hospital Course: patient is 81-year-old male has history of hypothyroidism mitral valve prolapse, SHAWN, peripheral neuropathy who presented the ED with complaints of hematuria. Patient does have a chronic Farias catheter and noticed getting darker the day went on. Patient did have a procedure done with Urology last Friday and restarted his anticoagulation last Friday. patient was started on CBI neurology was consulted. CT of the abdomen pelvis did not show any further defects, However does show postoperative changes. Neurology did go see the patient explained that the patient will see intermittent bleeding in the urine. CBI has been turned off and urine has been clear. Patient currently feels okay and labs are stable. Patient denies chest pain shortness a breath, nausea diarrhea, sweats, fevers, chills. Patient has been able to get out of bed and is doing well. UA did appear infectious however urine culture came back with no growth. Patient is being discharged home with a Farias catheter will need to follow up with Urology as indicated. Patient is stable for discharge per labs and vital signs. Patient and his who was on the phone was given discharge instructions, and signs to watch for when to call or return to the ED. He also reiterated and was able to review the instructions that were given to him by the urologist. Patient and both verbalized understanding. Status at Discharge Functional status at discharge: independent ambulation Overall status at discharge: patient is progressing back to baseline Time Spent with Patient Time attestation: Total time spent providing and/or coordinating discharge services: 43 minutes Time spent: Greater than 30 minutes Specific discharge activities: Diagnostic testing, chart review, developing a treatment plan, education, care coordination documentation, physical exam, result review Exam Narrative: General: well-nourished, well-appearing 81-year-old male, laying in bed, comfortable, NARD Neuro: awake, alert and oriented x4, speech clear, no focal neuro deficits noted HEENMT: normocephalic, atraumatic, EOMI, sclerae anicteric, moist oral mucosa Respiratory: C
[2022-03-11 09:53] LABS: Basophils Absolute Auto 0.1 K/mm3 (0.0-0.1); Basophils Percent Auto 0.9 % (0.2-1.2); Eosinophils Absolute Auto 0.3 K/mm3 (0-0.3); Eosinophils Percent Auto 3.7 % (0-4.4); Hematocrit 36.3 % (42.0-52.0); Hemoglobin 11.9 g/dL (14.0-18.0); Immature Granulocyte Absolute 0.03 K/mm3 (0.00-0.031); Immature Granulocyte Percent A 0.4 % (0-0.5); Lymphocytes Percent Auto 15.9 % (18.3-44.2); Mean Corpuscular HGB Conc 32.8 g/dl (32-36); Mean Corpuscular Volume 91.4 fl (80-100); Mean Platelet Volume 9.5 fl (7.4-10.4); Monocytes Percent Auto 12.2 % (2.6-8.5); Neutrophils Absolute Auto 5.5 K/mm3 (1.3-6.7); Neutrophils Percent Auto 66.9 % (45.5-73.1); Platelet Count Result 226 k/mm3 (150-375); Red Blood Count 3.97 M/mm3 (4.6-6.20); Red Cell Distribution Width 13.2 % (11.5-14.5); White Blood Count 8.2 K/mm3 (4.5-10.0)
[2022-03-11 10:04] VITALS: PULSE 62
[2022-03-11] MEDS: AMIODARONE HCL 100 MG TABLET PO (10:04)
[2022-03-11] MEDS: GABAPENTIN 100 MG CAPSULE 200 MG PO ×2 (10:06→13:01)
[2022-03-11] MEDS: DOCUSATE SODIUM 100 MG CAPSULE PO (10:06)
[2022-03-11] MEDS: CHOLECALCIFEROL 1,000 UNITS TABLET 2000 UNITS PO (10:06)
[2022-03-11] MEDS: TAMSULOSIN HCL 0.4 MG CAPSULE PO (10:07)
[2022-03-11] MEDS: SENNOSIDES 8.6 MG TABLET PO (10:07)
== END 2022-03-11 13:39 | disposition home or self-care (01) | DRG 696 ==
LOC: ANHED 03-10 05:46 → ANH3MEDSUR 03-10 09:45
PROVIDERS: Admitting Provider Internal Medicine; Emergency Provider Emergency Medicine; PCP Family Medicine; Visit Provider Nurse Practitioner
DX: R31.9 Hematuria, unspecified (principal); I50.32 Chronic diastolic (congestive) heart failure; G62.9 Polyneuropathy, unspecified; E78.5 Hyperlipidemia, unspecified; I48.0 Paroxysmal atrial fibrillation; E03.9 Hypothyroidism, unspecified; G47.33 Obstructive sleep apnea (adult) (pediatric); Z20.822 Contact with and (suspected) exposure to COVID-19; Z85.51 Personal history of malignant neoplasm of bladder; Z79.899 Other long term (current) drug therapy; Z82.49 Family history of ischemic heart disease and other diseases of the circulatory system; Z80.0 Family history of malignant neoplasm of digestive organs; Z80.3 Family history of malignant neoplasm of breast; Z80.8 Family history of malignant neoplasm of other organs or systems
CPT/HCPCS: 36415; 73130; 74178; 80048; 80053; 81001; 83735; 83880; 85025; 85610; 85730; 87086; 87636; 99285; A9270; J0131; J0696; Q9967

== ENCOUNTER 2022-03-27 07:45 | Outpatient (CLI) | payer MEDICARE, SELFPAY ==
--- NOTE | ~2022-03-27 | XR_ITS ---
EXAMINATION: XR cystogram DATE: 03/27/2022 08:35 INDICATION: Gross hematuria TECHNIQUE: Water-soluble contrast was gravity-infused through the patient's Farias catheter. Multiple fluoroscopic images were obtained. Fluoroscopy exposure time was 1.0 minutes. The DAP for this proced ure was 17.756 Gycm2. COMPARISON: None. FINDINGS: The bladder demonstrates normal contour. No extravasation of contrast is identified. Phlebo liths are noted in the pelvis. IMPRESSION: 1. No evidence of bladder leak. Reviewed, dictated and finalized at location A. N FOREMAN/SUPERINTENDANT
== END 2022-03-27 07:46 | disposition home or self-care (01) ==
PROVIDERS: PCP Family Medicine; Visit Provider Urology
DX: R31.0 Gross hematuria (principal)
CPT/HCPCS: 51600; 74430; Q9967

== ENCOUNTER 2022-04-10 08:01 | Outpatient (CLI) | payer MEDICARE, SELFPAY ==
--- NOTE | ~2022-04-10 | NM_ITS ---
EXAMINATION: NM claribel stress w perfusion DATE: 04/10/2022 11:26 INDICATION: Cardiac clearance. TECHNIQUE: Rest images were obtained following intravenous administration of 10.9 mCi Tc99m tetrofosm in (Myoview). The patient was infused intravenously with Lexiscan (Regadenoson). Then, 33.9 mCi Tc99m tetrofosmin (Myoview) was administered intravenously, and stress images were obtained. Data was jameel nstructed into short axis and horizontal and vertical long axis SPECT images. Gated SPECT images were also obtained. COMPARISON: None. FINDINGS: There is no definite reversible or fixed perfusion abnormality to suggest ischemia or infar ction. There is normal left ventricular chamber size, wall motion and ejection fraction. Left ventr icular ejection fraction measures 59%. IMPRESSION: 1. Normal myocardial perfusion at rest and during stress. 2. Left ventricular ejection fraction measuring 59%. Reviewed, dictated and finalized at location A. RER ELECTR[employer]LATING
--- NOTE | 2022-04-10 08:41 | EST_ITS ---
Patient Info Name: Jac Engel Age: 81 years : 1940 Gender: Male Ht: 70 in Wt: 172 lbs BSA: 1.97 m2 HR: 55 bpm BP: 131 / 83 mmHg Heart Rhythm: Sinus Rhythm Exam Date: 04/10/2022 8:57 AM Exam Location: [facility], [place] Stress Patient Status: Outpatient Admit Date: 04/10/2022 Staff Ordering Physician: Jorgito Mayo DO Attending Provider: Jorgito Mayo DO Exercise Technologist: Jannie Bernal CT Exercise Physician: Jorgito Mayo DO Exam Type: CA stress claribel w NM Study Info Indications Z01.810 - Encounter for preprocedural cardiovascular examination I48.0 - Paroxysmal atrial fibrillation A regadenoson stress test was performed. Summary 1. 1. Negative lexiscan stress test for ischemic ST changes by ECG criteria. 2. 2. Stable hemodynamics throughout the test. 3. 3. Nuclear scan to follow and will be reported separately. Please correlate with it. 4. 4. Patient informed of the above results. Protocol: Lexiscan Stress ECG Details Stage: REST Duration (min): 0 min : 59 sec HR (bpm): 54 SBP (mmHg): 131 DBP (mmHg): 83 Stage: REST Duration (min): 8 min : 9 sec HR (bpm): 57 SBP (mmHg): 131 DBP (mmHg): 83 Stage: STAGE 1 Duration (min): 0 min : 59 sec HR (bpm): 68 SBP (mmHg): 145 DBP (mmHg): 92 Stage: RECOVERY Duration (min): 1 min : 0 sec HR (bpm): 72 SBP (mmHg): 145 DBP (mmHg): 92 Stage: RECOVERY Duration (min): 2 min : 0 sec HR (bpm): 74 SBP (mmHg): 145 DBP (mmHg): 92 Stage: RECOVERY Duration (min): 3 min : 0 sec HR (bpm): 67 SBP (mmHg): 137 DBP (mmHg): 89 Stage: RECOVERY Duration (min): 3 min : 6 sec HR (bpm): 67 SBP (mmHg): 137 DBP (mmHg): 89 Rest HR: 57 bpm Peak HR: 76 bpm Rest Sys BP: 131 mmHg Peak Sys BP: 145 mmHg Max Pred HR: 141 bpm % Max Pred HR: 54 % Target HR: 120 bpm Max RPP: 11,020 bpm*mmHg Termination Reason: Completed protocol Cardiac Symptoms: Shortness of breath Total Time: 1 min : 0 sec Rest Bernal BP: 83 mmHg Peak Bernal BP: 92 mmHg Total Dose: 0.4 mg Resting ECG Sinus bradycardia. Stress ECG No ST changes. Arrhythmias None. Report Signatures
== END 2022-04-10 08:02 | disposition home or self-care (01) ==
LOC: ANHCARD 08:05
PROVIDERS: PCP Family Medicine; Visit Provider Internal Medicine Cardiovascular Disease
DX: I48.0 Paroxysmal atrial fibrillation (principal)
CPT/HCPCS: 78452; 93017; A9502; J2785

== ENCOUNTER 2022-05-19 08:49 | Emergency (ER) | payer MEDICARE, SELFPAY ==
--- NOTE | ~2022-05-19 | CT_ITS ---
EXAMINATION: CT abdomen pelvis w con DATE: 05/19/2022 11:18 INDICATION: Abdominal pain, hematuria. History of recent bladder surgery. TECHNIQUE: Computed tomography (CT) of the abdomen and pelvis was performed with 100 CC Omnipaque 350 intravenous contrast. Automated exposure control and iterative reconstruction technique were employe d. Exam dose: 412.15 mGy-cm total exam DLP. COMPARISON: 03/2022 cystogram 03/10/2022 CT abdomen pelvis 01/30/2022 CT abdomen pelvis FINDINGS: Bilateral lower lobe dependent atelectasis. No pericardial or pleural effusion. No hepatic, splenic or pancreatic space-occupying mass lesion is detected. Calcifications consistent with chronic pancreatitis. The gallbladder is present. No bile duct or pancreatic duct dilatation. Normal morphology of the adrenal glands. Approximately 3 cm right renal cyst. No other renal mass lesion or urinary tract calculus or hydroure teronephrosis is evident. There is asymmetric mild thickening of the urinary bladder wall. There is prostate enlargement and sl ight calcification. There is mild abdominal aortic calcification but no abdominal aortic aneurysm. No intraperitoneal or retroperitoneal or pelvic mass lesion or adenopathy or ascites. Small fat-containing left inguinal hernia. Normal appendix. Diverticulosis of the left colon; no CT evidence of diverticulitis. There is a promi nent amount of fecal material in the colon no bowel obstruction is detected. No pneumatosis or intrap eritoneal free air. Prominent degenerative disc disease throughout the lumbar and lumbosacral spine. Degenerative changes at the apophyseal joints with associated grade 1 anterolisthesis at L5-S1. No suspicious osteolytic or osteoblastic lesions are noted. IMPRESSION: Nonspecific asymmetric mild thickening of the urinary bladder wall No urinary tract calculus or hydroureteronephrosis 3 cm right renal cyst Normal appendix Diverticulosis of the colon Reviewed, dictated and finalized at [facility]. Reviewed, dictated and finalized at [facility]. [employer]
[2022-05-19 09:07] VITALS: BP 133/77; PULSE 62; TEMP 36.3; O2SAT 100
[2022-05-19 10:21] LABS: Basophils Absolute Auto 0.1 K/mm3 (0.0-0.1); Basophils Percent Auto 1.7 % (0.2-1.2); Eosinophils Absolute Auto 0.2 K/mm3 (0-0.3); Hematocrit 37.2 % (42.0-52.0); Hemoglobin 11.8 g/dL (14.0-18.0); Immature Granulocyte Absolute 0.03 K/mm3 (0.00-0.031); Immature Granulocyte Percent A 0.5 % (0-0.5); Lymphocytes Absolute Auto 1.22 K/mm3 (0.9-3.2); Lymphocytes Percent Auto 20.6 % (18.3-44.2); Mean Corpuscular HGB Conc 31.7 g/dl (32-36); Mean Corpuscular Hemoglobin 29.9 pg (26-34); Mean Corpuscular Volume 94.4 fl (80-100); Mean Platelet Volume 9.2 fl (7.4-10.4); Monocytes Absolute Auto 0.7 K/mm3 (0.1-0.6); Monocytes Percent Auto 12.1 % (2.6-8.5); Neutrophils Absolute Auto 3.6 K/mm3 (1.3-6.7); Neutrophils Percent Auto 61.1 % (45.5-73.1); Platelet Count Result 198 k/mm3 (150-375); Red Blood Count 3.94 M/mm3 (4.6-6.20); White Blood Count 5.9 K/mm3 (4.5-10.0)
[2022-05-19 10:29] LABS: Appearance Urine Turbid (Clear); Blood Urine 3+ (Negative); Color Urine Red (Yellow); Glucose Urine UA Negative (Negative); Ketones Urine Negative (Negative); Leukocyte Esterase Ur Negative LEU/UL (Negative); Protein Urine 3+ mg/dL (Negative); pH Urine 8.5 (5.0-9.0)
[2022-05-19 10:31] LABS: Add Urine Microscopic? YES; RBC Urine >75 /hpf (0-2); WBC Urine 0-3 /hpf (0-3)
[2022-05-19 10:33] LABS: Anion Gap 5 mmol/L (8-16); Blood Urea Nitrogen 15 mg/dL (9-20); Calcium 9.5 mg/dL (8.4-10.2); Carbon Dioxide 28 mmol/L (22-30); Chloride 103 mmol/L (98-107); Estimated CRCL calculation 66 ml/min; Estimated Glomerular Filt Rate > 60; Glucose 95 mg/dL (65-110); Potassium 4.2 mmol/L (3.4-5.0); Sodium 136 mmol/L (137-145)
[2022-05-19 10:39] LABS: INR 1.7; Partial Thromboplastin Time 41.3 SECONDS (22.3-36.8); Prothrombin Time 19.1 Seconds (11.1-14.7)
--- NOTE | 2022-05-19 12:28 | ED.GENADULT ---
HPI - General Adult General Chief complaint: Urogenital-Male Stated complaint: Blood in urine Time Seen by Provider: 05/19/22 09:28 Source: RN notes reviewed History of Present Illness HPI narrative: Patient presents emergency department from home for hematuria. History is per the patient as well as is present. Patient states that he has a history of a bladder mass that was biopsied showing T1 cells by Dr. Delatorre approximately 3 months ago. He states that he been doing well since that time but last night developed hematuria he states he has had approximately 4 episodes of blood in his urine he states the urine is watery but red in color. States he is able to fully urinate he denies any fevers or chills chest pain shortness of breath abdominal pain nausea vomiting or diarrhea. States that he is on Xarelto but has been off the Xarelto for 2 days for a skin biopsy and he just restarted it yesterday Related Data Home Medications Medication Instructions Recorded Confirmed flaxseed 1 ea PO DAILY 02/19/22 04/29/22 acetaminophen 500 mg capsule 1,000 mg PO .Q8 PRN 04/29/22 04/29/22 (Mapap (acetaminophen)) cefadroxil 500 mg capsule 500 mg PO BID 04/29/22 04/29/22 cholecalciferol (vitamin D3) 50 25 mcg PO DAILY 04/29/22 04/29/22 mcg (2,000 unit) capsule meloxicam 7.5 mg tablet 7.5 mg PO DAILY 04/29/22 04/29/22 rivaroxaban 20 mg tablet (Xarelto) 20 mg PO DAILY 04/29/22 04/29/22 tramadol 50 mg tablet 50 mg PO Q6H PRN 04/29/22 04/29/22 Allergies Allergy/AdvReac Type Severity Reaction Status Date / Time No Known Allergies Allergy Verified 05/19/22 09:28 Review of Systems Review of Systems: Gen.: Denies fevers or chills ENT: Denies congestion Respiratory: Denies shortness of breath or cough CV: Denies chest pain or palpitations GI: Denies abdominal pain nausea, emesis or diarrhea see HPI Musculoskeletal: Denies back pain or muscle pain Neuro: Denies numbness, tingling, weakness or focal weakness Skin: Denies rash Except as documented, all other systems reviewed and negative PMFSH Past Medical History Medical History JAMILAH positive Anemia Bilateral lower extremity pain Chronic lower back pain Family hx of colon cancer Hematuria History of colon polyps Hypothyroidism Mitral valve prolapse On amiodarone therapy SHAWN (obstructive sleep apnea) Osteoarthritis Osteoarthritis of hands, bilateral PAF (paroxysmal atrial fibrillation) Peripheral neuropathy PSVT (paroxysmal supraventricular tachycardia) 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 Surgical History Surgical History H/O elbow surgery H/O left inguinal hernia repair (~03/1977) H/O right inguinal hernia repair (~12/2001) H/O varicose vein ligation and stripping 2018 History of appendectomy (~1956) History of arthroplasty of left knee (~04/23/22) History of bladder surgery (~02/2022) s/p TURBT History of tonsillectomy (~1949) Family History Family History Sibling Family history of cardiovascular disease Family history of sleep apnea Family history of malignant neoplasm of stomach Family history of malignant neoplasm of gastrointestinal tract Family history of malignant neoplasm of breast Family history of lymphoma Grandparent Family history of malignant neoplasm Family history of primary malignant neoplasm of liver Father Family history of malignant neoplasm of gastrointestinal tract Other Carcinoma of colon Social History Social History Social History: patient lives at home with his Katy Samuels. Katy Samuels will be his surrogate if needed. He also stated that he has a living well. He does have 3 children. He denies having any pets. He wishes to be a full code for now. Smoking status: Never sm
[2022-05-19 13:16] VITALS: BP 146/67; PULSE 69; RESP 18; O2SAT 100
== END 2022-05-19 13:19 | disposition home or self-care (01) ==
PROVIDERS: Emergency Provider Emergency Medicine; PCP Family Medicine
DX: R31.9 Hematuria, unspecified (principal); E03.9 Hypothyroidism, unspecified; I34.1 Nonrheumatic mitral (valve) prolapse; D64.9 Anemia, unspecified; G47.33 Obstructive sleep apnea (adult) (pediatric); G62.9 Polyneuropathy, unspecified; M19.042 Primary osteoarthritis, left hand; M19.041 Primary osteoarthritis, right hand; Z86.010 Personal history of colon polyps; Z96.652 Presence of left artificial knee joint; Z79.01 Long term (current) use of anticoagulants; N28.1 Cyst of kidney, acquired; K57.90 Diverticulosis of intestine, part unspecified, without perforation or abscess without bleeding; R93.41 Abnormal radiologic findings on diagnostic imaging of renal pelvis, ureter, or bladder
CPT/HCPCS: 36415; 51700; 74177; 80048; 81001; 85025; 85610; 85730; 99284; Q9967

== ENCOUNTER 2022-05-29 08:03 | Outpatient (CLI) | payer MEDICARE, SELFPAY ==
[2022-05-29 08:53] LABS: Basophils Absolute Auto 0.1 K/mm3 (0.0-0.1); Basophils Percent Auto 1.7 % (0.2-1.2); Eosinophils Absolute Auto 0.3 K/mm3 (0-0.3); Eosinophils Percent Auto 3.7 % (0-4.4); Hemoglobin 11.7 g/dL (14.0-18.0); Immature Granulocyte Absolute 0.03 K/mm3 (0.00-0.031); Immature Granulocyte Percent A 0.4 % (0-0.5); Lymphocytes Absolute Auto 1.35 K/mm3 (0.9-3.2); Lymphocytes Percent Auto 19.3 % (18.3-44.2); Mean Corpuscular HGB Conc 31.6 g/dl (32-36); Mean Corpuscular Hemoglobin 30.2 pg (26-34); Mean Corpuscular Volume 95.4 fl (80-100); Mean Platelet Volume 9.5 fl (7.4-10.4); Monocytes Absolute Auto 0.8 K/mm3 (0.1-0.6); Monocytes Percent Auto 11.9 % (2.6-8.5); Neutrophils Absolute Auto 4.4 K/mm3 (1.3-6.7); Platelet Count Result 199 k/mm3 (150-375); Red Blood Count 3.88 M/mm3 (4.6-6.20); Red Cell Distribution Width 14.1 % (11.5-14.5)
[2022-05-29 09:18] LABS: Alanine Aminotransferase 15 U/L (6-50); Albumin Level 4.2 g/dL (3.5-5.1); Alkaline Phosphatase 106 U/L (38-126); Anion Gap 5 mmol/L (8-16); Aspartate Amino Transferase 25 U/L (17-59); Bilirubin,Total 1.3 mg/dL (0.2-1.3); Blood Urea Nitrogen 19 mg/dL (9-20); Carbon Dioxide 29 mmol/L (22-30); Chloride 105 mmol/L (98-107); Cholesterol 172 mg/dL (0-200); Estimated Glomerular Filt Rate > 60; Glucose 93 mg/dL (65-110); HDL Direct 76 mg/dL; LDL Cholesterol Direct 66 mg/dL; Potassium 4.4 mmol/L (3.4-5.0); Sodium 139 mmol/L (137-145); Triglycerides 64 mg/dL (<150)
[2022-05-29 09:36] LABS: Prostate Specific Antigen 1.2 ng/mL (< OR = 4.0)
[2022-05-29 12:18] LABS: Free T4 Free Thyroxine Reflex 1.45 ng/dL (0.78-2.19)
[2022-05-29 13:30] LABS: Total Triiodothyronine (T3) 1.31 NG/ML (0.97-1.69)
== END 2022-05-29 08:04 | disposition home or self-care (01) ==
PROVIDERS: PCP Family Medicine; Visit Provider Family Medicine
DX: E55.9 Vitamin D deficiency, unspecified (principal); E53.8 Deficiency of other specified B group vitamins; E03.9 Hypothyroidism, unspecified; I10 Essential (primary) hypertension; Z12.5 Encounter for screening for malignant neoplasm of prostate; E78.5 Hyperlipidemia, unspecified; Z00.00 Encounter for general adult medical examination without abnormal findings
CPT/HCPCS: 36415; 80053; 80061; 82306; 82607; 84153; 84439; 84443; 84480; 85025; G0103

== ENCOUNTER 2022-11-26 09:50 | Outpatient (CLI) | payer MEDICARE, SELFPAY ==
[2022-11-26 11:51] LABS: T4 Thyroxine 8.61 ug/dL (5.53-11.0)
[2022-11-26 12:04] LABS: Total Triiodothyronine (T3) 1.08 NG/ML (0.97-1.69)
[2022-11-26 12:06] LABS: Free T4 Free Thyroxine 1.49 ng/mL (0.78-2.19)
== END 2022-11-26 09:51 | disposition home or self-care (01) ==
PROVIDERS: PCP Family Medicine; Visit Provider Internal Medicine Endocrinology, Diabetes & Metabolism
DX: E03.9 Hypothyroidism, unspecified (principal); E04.9 Nontoxic goiter, unspecified
CPT/HCPCS: 36415; 84436; 84439; 84443; 84480; 84481

== ENCOUNTER 2023-04-28 08:41 | Outpatient (CLI) | payer MEDICARE, SELFPAY ==
--- NOTE | 2023-04-28 08:44 | ECHO_ITS ---
Patient Info Name: Jac Engel Age: 82 years : 1940 Gender: Male Ht: 70 in Wt: 182 lbs BSA: 2.03 m2 HR: 64 bpm BP: 132 / 68 mmHg Technical Quality: Good Exam Date: 04/28/2023 8:59 AM Exam Location: Echo Lab Patient Status: Outpatient Admit Date: 04/28/2023 Staff Ordering Physician: Jorgito Mayo DO Attending Provider: Jorgito Mayo DO Referring Physician: Gael MOORE; Exam Type: CA echo doppler color flow Study Info Indications I34.1 - Nonrheumatic mitral (valve) prolapse Complete two-dimensional, color flow and Doppler transthoracic echocardiogram is performed. Summary 1. Complete two-dimensional, color flow and Doppler transthoracic echocardiogram is performed. 2. Left ventricular chamber dimension is normal. 3. Left ventricular systolic function is normal, estimated at 65-70%. 4. The left ventricular diastolic function is normal. 5. E/e' 9 is minimally elevated. 6. Left atrial chamber dimension is severely enlarged. 7. Right atrial chamber dimension is moderately enlarged. 8. There is mild aortic valve sclerosis. 9. The mitral valve has mild bileaflet prolapse. 10. There is mild mitral valve regurgitation. 11. There is trace tricuspid valve regurgitation. 12. No pulmonary hypertension, estimated pulmonary arterial systolic pressure is 29 mmHg. 13. There is trace pulmonic regurgitation. Left Ventricle E/e' 9 is minimally elevated. Left ventricular chamber dimension is normal. Left ventricular systolic function is normal, estimated at 65-70%. The left ventricular diastolic function is normal. Right Ventricle Right ventricular systolic function is normal and with normal TAPSE 2.5 cm. Right ventricular chamber dimension is normal. Left Atria Left atrial chamber dimension is severely enlarged. Right Atria Right atrial chamber dimension is moderately enlarged. Aortic Valve The aortic valve is trileaflet. There is mild aortic valve sclerosis. There is no aortic valve stenosis. There is no aortic valve regurgitation. Pulmonic Valve There is trace pulmonic regurgitation. Mitral Valve The mitral valve has mild bileaflet prolapse. There is no mitral valve stenosis. There is mild mitral valve regurgitation. Tricuspid Valve There is trace tricuspid valve regurgitation. No pulmonary hypertension, estimated pulmonary arterial systolic pressure is 29 mmHg. Pericardium/Pleural There is no pericardial effusion. Inferior Vena Cava Normal inferior vena cava with >50% collapse upon inspiration consistent with normal right atrial pressure, 5 mmHg. Aorta The aortic root size at the sinus of Valsalva is normal. Left Ventricular Outflow Tract Name Value Normal LVOT 2D LVOT Diameter 2.0 cm LVOT Doppler LVOT Peak Gradient 5 mmHg LVOT Mean Gradient 3 mmHg LVOT VTI 25 cm LVOT VTI/AV VTI Ratio 0.7 LVOT Stroke Volume 76 ml LVOT CO 4.7 l/min LVOT CI 2.3 l/min/m2 Pulmonic Valve Name
== END 2023-04-28 08:42 | disposition home or self-care (01) ==
LOC: ANHCARD 08:43
PROVIDERS: PCP Family Medicine; Visit Provider Internal Medicine Cardiovascular Disease
DX: I34.1 Nonrheumatic mitral (valve) prolapse (principal); I34.0 Nonrheumatic mitral (valve) insufficiency
CPT/HCPCS: 93306

== ENCOUNTER 2023-11-04 13:37 | Outpatient (CLI) | payer MEDICARE, SELFPAY ==
--- NOTE | ~2023-11-04 | US_ITS ---
EXAMINATION: US carotid duplex BI DATE: 11/04/2023 14:37 INDICATION: Encounter for follow-up examination after carotid endarterectomy. TECHNIQUE: Grayscale, color Doppler, and pulsed Doppler images of the cervical carotid arteries were obtained. The degree of vessel stenosis is placed in one of the following categories: normal, <50%, 5 0-69%, >=70% but less than near-occlusion, near-occlusion, or total occlusion. Note that percent sten osis relative to normal distal artery lumen diameter is indirectly measured from velocity measurement s as described by Jhoan, et al. Radiology 2003; 229:340-346. COMPARISON: Ultrasound 08/15/2016 FINDINGS: RIGHT: The right common carotid artery (CCA) peak systolic velocity (PSV) is 96 cm/s. The right internal car otid artery (ICA) PSV is 75 cm/s. The right ICA end-diastolic velocity (EDV) is 12 cm/s. The right IC A/CCA PSV ratio is 0.8. Grayscale and color Doppler images yield an estimate of <50% diameter reducti on from plaque in the ICA. There is antegrade flow in the right vertebral artery. LEFT: The left CCA PSV is 84 cm/s. The left ICA PSV is 57 cm/s. The left ICA EDV is 12 cm/s. The left ICA/C CA PSV ratio is 0.7. Grayscale and color Doppler images yield an estimate of <50% diameter reduction from plaque in the ICA. There is antegrade flow in the left vertebral artery. IMPRESSION: 1. <50% stenosis in the right internal carotid artery. 2. <50% stenosis in the left internal carotid artery. Reviewed, dictated and finalized at [facility].
== END 2023-11-04 13:38 | disposition home or self-care (01) ==
PROVIDERS: PCP Family Medicine; Visit Provider Internal Medicine Cardiovascular Disease
DX: I65.23 Occlusion and stenosis of bilateral carotid arteries (principal); I48.0 Paroxysmal atrial fibrillation; Z09 Encounter for follow-up examination after completed treatment for conditions other than malignant neoplasm
CPT/HCPCS: 93880

== ENCOUNTER 2023-11-29 08:11 | Outpatient (CLI) | payer MEDICARE, SELFPAY ==
[2023-11-29 08:52] LABS: Basophils Absolute Auto 0.1 K/mm3 (0.0-0.1); Basophils Percent Auto 0.9 % (0.2-1.2); Eosinophils Absolute Auto 0.2 K/mm3 (0-0.3); Eosinophils Percent Auto 3.3 % (0-4.4); Hematocrit 36.9 % (42.0-52.0); Hemoglobin 11.9 g/dL (14.0-18.0); Immature Granulocyte Absolute 0.02 K/mm3 (0.00-0.031); Immature Granulocyte Percent A 0.3 % (0-0.5); Lymphocytes Absolute Auto 1.05 K/mm3 (0.9-3.2); Lymphocytes Percent Auto 18.1 % (18.3-44.2); Mean Corpuscular HGB Conc 32.2 g/dl (32-36); Mean Corpuscular Hemoglobin 31.8 pg (26-34); Mean Corpuscular Volume 98.7 fl (80-100); Mean Platelet Volume 9.4 fl (7.4-10.4); Monocytes Absolute Auto 0.7 K/mm3 (0.1-0.6); Monocytes Percent Auto 12.1 % (2.6-8.5); Neutrophils Absolute Auto 3.8 K/mm3 (1.3-6.7); Neutrophils Percent Auto 65.3 % (45.5-73.1); Platelet Count Result 153 k/mm3 (150-375); Red Blood Count 3.74 M/mm3 (4.6-6.20); Red Cell Distribution Width 14.3 % (11.5-14.5); White Blood Count 5.8 K/mm3 (4.5-10.0)
[2023-11-29 09:17] LABS: Anion Gap 6 mmol/L (4-12); Blood Urea Nitrogen 23 mg/dL (9-20); Carbon Dioxide 27 mmol/L (22-30); Chloride 104 mmol/L (98-107); Estimated Glomerular Filt Rate > 60; Glucose 91 mg/dL (65-110); Potassium 4.4 mmol/L (3.4-5.0); Sodium 137 mmol/L (137-145)
[2023-11-29 09:18] LABS: INR 1.9; Prothrombin Time 21.9 Seconds (11.1-14.7)
[2023-11-29 09:19] LABS: Partial Thromboplastin Time 39.7 Seconds (22.3-36.8)
== END 2023-11-29 08:12 | disposition home or self-care (01) ==
PROVIDERS: PCP Family Medicine; Visit Provider Urology
DX: Z85.51 Personal history of malignant neoplasm of bladder (principal); Z01.818 Encounter for other preprocedural examination
CPT/HCPCS: 36415; 80048; 85025; 85610; 85730; 87086; 87088

== ENCOUNTER 2023-12-02 00:38 | Day surgery (SDC) | payer MEDICARE, SELFPAY ==
[2023-11-26 08:29] VITALS: BMI 24.7
--- NOTE | 2023-11-26 08:38 | PC.NURSE ---
Report to the Outpatient Waiting Room, entrance under the green pavilion located off [address], at time _0800_ on date _[id number]_. Planned Procedure Time: _1000_.? Time changes happen often and if your time is changed the preop area will call you the afternoon before. - You and your visitor will be asked to self-screen and do not enter if you have any COVID symptoms. Please call surgeon if you need to reschedule. - A mask is optional within the hospital at this time. Patients may have clear liquids (water, carbonated beverages, clear teas, apple juice) until 3 hours prior to surgery with a maximum of 20 ounces. - No food from midnight until time of surgery and no smoking Take only the following medications with a SIP of water on the morning of surgery: ___Amiodarone if this is the day to take it. (takes every other day) DO NOT STOP ANY OF YOUR OTHER PRESCRIPTION MEDICATIONS PRIOR TO SURGERY EXCEPT THE FOLLOWING Medications to discontinue per physician ____Jac stopped Vitamin D3 and Flax seed 11-26-2023 and is planning to stop Xarelto [id number] Please no make-up, nail liberian, hairspray, perfume, deodorant, or body powder the day of surgery.? No jewelry (including any body piercings) or valuables the day of surgery, leave them at home.? Please take a shower or bath the night before, or the morning of, surgery with an antibacterial soap.? Wear comfortable, loose fitting clothing.? Children are encouraged to wear pajamas. - Jewelry must be removed prior to entering the operating room.? Rings and piercings that are not removed may be cut off. - The hospital will not accept responsibility for valuables.? - Please leave all valuables, including medications, at home the day of surgery. If you are going home after surgery, a licensed swing driver must drive you home.? - NO public transportation without another adult if you receive anesthesia. - We recommend that an adult stay with you for 24 hours following discharge. - We also recommend that you do not drive, make important decision, drink alcoholic beverages, or take any drugs that were not prescribed by your health care provider for at least 24 hours after your discharge time. Follow any additional instructions given to you from your surgeon. Telephone instructions given to _Jac__and asked if any additional questions and then verbalized understanding. Patient advised to call surgeon office or pre surgery nurse liaison [phone] if any additional questions.
[2023-12-02] VITALS (7 sets, daily range): BP systolic 115–148; BP diastolic 79–98; PULSE 51–80; RESP 12–16; TEMP 36.2–36.8; O2SAT 94–100; BMI 25.2
--- NOTE | 2023-12-02 07:04 | PM.IMHP ---
H&P: HPI History of Present Illness Date/Time: 12/02/23 07:04 Chief Complaint: bladder lesion Narrative: 83 year old male with history of bladder cancer presents for cystoscopy with bladder biopsy and fulguration Review of Systems Review of Systems: All systems reviewed & are unremarkable except as noted in HPI and below PMFSH Past Medical History Medical History Allergic rhinitis JAMILAH positive has seen Rheumatology all the workup was negative except positive JAMILAH. Anemia Bilateral lower extremity pain Chronic lower back pain Family hx of colon cancer Hematuria History of colon polyps Hypothyroidism Mitral valve prolapse On amiodarone therapy SHAWN (obstructive sleep apnea) Osteoarthritis Osteoarthritis of hands, bilateral PAF (paroxysmal atrial fibrillation) Peripheral neuropathy PSVT (paroxysmal supraventricular tachycardia) 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 Surgical History Surgical History H/O elbow surgery H/O left inguinal hernia repair (~03/1977) H/O right inguinal hernia repair (~12/2001) H/O varicose vein ligation and stripping 2018 History of appendectomy (~1956) History of arthroplasty of left knee (~04/23/22) History of bladder surgery (~02/2022) s/p TURBT History of tonsillectomy (~1949) History of total right knee replacement Family History Family History Sibling Family history of cardiovascular disease Family history of sleep apnea Family history of malignant neoplasm of stomach Family history of malignant neoplasm of gastrointestinal tract Family history of malignant neoplasm of breast Family history of lymphoma Grandparent Family history of malignant neoplasm Family history of primary malignant neoplasm of liver Father Family history of malignant neoplasm of gastrointestinal tract Other Carcinoma of colon Social History Social History Social History: patient lives at home with his Katy Samuels. Katy Samuels will be his surrogate if needed. He also stated that he has a living well. He does have 3 children. He denies having any pets. He wishes to be a full code for now. Smoking status: Never smoker Second hand tobacco smoke exposure: No Alcohol intake: current Drinks per week: 0 Alcohol use details: OCCASIONALLY only through special events Substance use: never Substance use type: does not use Lack of Transportation: No Lack of Food: Never True Current Housing: I Have Housing Concerned About Future Housing: No Difficulty Paying Gas/Electric Bills: No Difficulty Paying for Meds: No Currently Unemployed: No Education: High School Diploma/GED Difficulty w/ Childcare or Family Care: No Living arrangements: with family Additional living arrangements comments: [place] Occupation/Education: retired 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 [employer] Gender identity (if verbalized by the patient): Male Sexual Orientation (if Verbalized by the Patient): Straight or Heterosexual Spiritual care concerns: No Agree to blood products: Yes Meds Home Medications and Allergies Home Medications Medication Instructions Recorded Confirmed Type flaxseed 1 ea PO DAILY 02/19/22 11/26/23 History cholecalciferol (vitamin D3) 50 25 mcg PO DAILY 04/29/22 11/26/23 History mcg (2,000 unit) capsule amiodarone 200 mg tablet See Rx Instructions .Route 09/22/23 11/26/23 Rx .COMPLEX #45 tabs rivaroxaban 20 mg tablet (Xarelto) 20 mg PO DAILY #90 tabs 10/15/23 11/26/23 Rx Allergies Allergy/AdvReac Type Severity Reaction Status Date / Time No Known Allergies Allergy Verified 11/26/23 08:27 Exam Const: General: cooperative Resp: Effort
[2023-12-02 08:57] LABS: INR 1.1; Partial Thromboplastin Time 34.5 Seconds (22.3-36.8); Prothrombin Time 14.8 Seconds (11.1-14.7)
--- NOTE | 2023-12-02 09:39 | WPDANESEPPF ---
Anes - Initial Pre Proc Eval Procedure: Operation Date: 12/02/23 10:00 Proposed Procedures p Cystoscopy, Bladder Biopsy Fulguration - Ubaldo Delatorre MD s Possible Trans Urethral Resection Bladder Tumor - Ubaldo Delatorre MD Date/Time: 12/02/23 09:39 Surgeon: Ubaldo Delatorre MD Pre Op Diagnosis: Bladder Ca Patient Data Age: 83 Gender: M Height: 1.78 m Weight: 79.9 kg Last Vital Signs Temp 36.2 C L 12/02/23 08:10 Pulse 57 L 12/02/23 08:10 Resp 16 12/02/23 08:10 BP 148/79 H 12/02/23 08:10 Pulse Ox 100 12/02/23 08:10 Allergies Allergy/AdvReac Type Severity Reaction Status Date / Time No Known Allergies Allergy Verified 12/02/23 08:20 Home Medications Medication Instructions Recorded Confirmed Type flaxseed 1 ea PO DAILY 02/19/22 11/26/23 History cholecalciferol (vitamin D3) 50 25 mcg PO DAILY 04/29/22 11/26/23 History mcg (2,000 unit) capsule amiodarone 200 mg tablet See Rx Instructions .Route 09/22/23 12/02/23 Rx .COMPLEX #45 tabs rivaroxaban 20 mg tablet (Xarelto) 20 mg PO DAILY #90 tabs 10/15/23 12/02/23 Rx Laboratory Tests 12/02/23 08:10 PT 14.8 H D Seconds (11.1-14.7) INR 1.1 APTT 34.5 Seconds (22.3-36.8) Patient hx anesthesia problems: none Family hx anesthesia problems: none Results Review: All pre-operative results and documents have been reviewed as part of the pre-operative evaluation. [facility] Past Medical History Medical History Allergic rhinitis JAMILAH positive has seen Rheumatology all the workup was negative except positive JAMILAH. Anemia Bilateral lower extremity pain Chronic lower back pain Family hx of colon cancer Hematuria History of colon polyps Hypothyroidism Mitral valve prolapse On amiodarone therapy SHAWN (obstructive sleep apnea) Osteoarthritis Osteoarthritis of hands, bilateral PAF (paroxysmal atrial fibrillation) Peripheral neuropathy PSVT (paroxysmal supraventricular tachycardia) 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 Surgical History Surgical History H/O elbow surgery H/O left inguinal hernia repair (~03/1977) H/O right inguinal hernia repair (~12/2001) H/O varicose vein ligation and stripping 2019 History of appendectomy (~1956) History of arthroplasty of left knee (~04/23/22) History of bladder surgery (~02/2022) s/p TURBT History of tonsillectomy (~1950) History of total right knee replacement Family History Family History Sibling Family history of cardiovascular disease Family history of sleep apnea Family history of malignant neoplasm of stomach Family history of malignant neoplasm of gastrointestinal tract Family history of malignant neoplasm of breast Family history of lymphoma Grandparent Family history of malignant neoplasm Family history of primary malignant neoplasm of liver Father Family history of malignant neoplasm of gastrointestinal tract Other Carcinoma of colon Social History Social History Social History: patient lives at home with his Katy Samuels. Katy Samuels will be his surrogate if needed. He also stated that he has a living well. He does have 3 children. He denies having any pets. He wishes to be a full code for now. Smoking status: Never smoker Second hand tobacco smoke exposure: No Alcohol intake: current Drinks per week: 0 Alcohol use details: OCCASIONALLY only through special events Substance use: never Substance use type: does not use Lack of Transportation: No Lack of Food: Never True Current Housing: I Have Housing Concerned About Future Housing: No Difficulty Paying Gas/Electric Bills: No Difficulty Paying for Meds: No Currently Unemployed: No Educati
--- NOTE | 2023-12-02 10:05 | WPDHPUPDATE1 ---
History and Physical Update Update Date/Time: 12/02/23 10:05 History and Physical has been reviewed, including an updated exam of the patient. There are NO changes in the patient's condition. Risks, benefits, and alternatives have been discussed and questions answered. Patient agrees to proceed with procedure.
[2023-12-02] MEDS: ceFAZolin 2 GM/D5W 50 ML 2 GM/50 ML BAG IVPB (10:11)
[2023-12-02] MEDS: LACTATED RINGERS 1,000 ML 30 ML IV CONT (10:22)
[2023-12-02] MEDS: LIDOCAINE HCL 2% GEL UROJET 10 ML PKG MUCOUS MEM (10:37)
--- NOTE | 2023-12-02 10:46 | P.OP_ITS ---
Procedure Note - Detailed Date of Procedure 12/02/23 Pre-op Diagnosis Bladder Ca Post-op Diagnosis Same Procedure Performed Cysto with transurethral resection of bladder tumor medium size 2 cm area, urethral dilatation Surgeon Ubaldo Delatorre MD Anesthesia General Description of Procedure Patient was taken the operative suite correctly identified. Once anesthesia was obtained was placed in dorsal lithotomy position and prepped draped usual sterile fashion. Urethra was dilated up to 26 Tanzanian. Twenty-four Tanzanian resectoscope sheath was inserted in the bladder. He has an area of irregularity along the right lateral wall approximately 2 cm in diameter. This was then resected. Base was fulgurated. There was good hemostasis. 2% viscous lidocaine was inserted into the urethra patient is taken recovery stable condition. He will call for path results in 1 week. This completes dictation. Please send a copy of op note to my office. Estimated Blood Loss 0 Drains No Packing No Pathology Yes Complications No immediate complications Condition Stable Disposition PACU
--- NOTE | 2023-12-02 11:11 | SUR.PHASEI ---
Simple mask removed at 1105
== END 2023-12-02 12:11 | disposition home or self-care (01) ==
PROVIDERS: PCP Family Medicine; Visit Provider Urology
PROC: 0TBB8ZX Excision of Bladder, Via Natural or Artificial Opening Endoscopic, Diagnostic (ICD-10-PCS; CPT 52204; principal; 2023-12-02 10:00)
PROC: 0TBB8ZZ Excision of Bladder, Via Natural or Artificial Opening Endoscopic (ICD-10-PCS; CPT 52235; 2023-12-02 10:00)
DX: N30.20 Other chronic cystitis without hematuria (principal); D18.09 Hemangioma of other sites; Z85.51 Personal history of malignant neoplasm of bladder; I48.0 Paroxysmal atrial fibrillation; E03.9 Hypothyroidism, unspecified; G47.33 Obstructive sleep apnea (adult) (pediatric); I34.1 Nonrheumatic mitral (valve) prolapse; G62.9 Polyneuropathy, unspecified; I47.10 Supraventricular tachycardia, unspecified; D64.9 Anemia, unspecified; Z79.01 Long term (current) use of anticoagulants
CPT/HCPCS: 52235; 36415; 80048; 85025; 85610; 85730; 87086; 88305; J0690; J1100; J2405; J2704; J3010; J7120

== ENCOUNTER 2024-04-12 10:46 | Outpatient (CLI) | payer MEDICARE, SELFPAY ==
--- NOTE | ~2024-04-12 | XR_ITS ---
EXAMINATION: [id number] DATE: 04/12/2024 11:04 INDICATION: Neck pain. TECHNIQUE: 4 views of cervical spine were obtained. COMPARISON: None. FINDINGS: There is 2 mm retrolisthesis of C4 on C5 and C5 on C6 and 2 mm anterolisthesis of C7 on T1. Vertebral body heights are normal. There is severely decreased disc height from C4-C5 through C6-C7. There is multilevel [id number] facet joint osteoarthritis. There is mild central canal stenosi s at C4-C5, C5-C6, and C6-C7. No prevertebral soft tissue swelling. IMPRESSION: 1. Severe cervical spondylosis. Reviewed, dictated and finalized at [facility]. [employer]
== END 2024-04-12 10:47 | disposition home or self-care (01) ==
LOC: GOSHIMG 10:47
PROVIDERS: PCP Nurse Practitioner Family; Visit Provider Nurse Practitioner Family
DX: M43.02 Spondylolysis, cervical region (principal)
CPT/HCPCS: 72040

== ENCOUNTER 2024-07-05 14:13 | Emergency (ER) | payer MEDICARE, SELFPAY ==
--- NOTE | ~2024-07-05 | XR_ITS ---
XR hand LT min 3V Ordering provider: Lisseth Flores APRN History: . pain swelling prox Lt thumb . Comparison: March 08, 2022 FINDINGS: BONES: No acute fracture or dislocation. JOINT SPACES: Narrowing of the proximal and distal interphalangeal joints. Cystic area in the scaphoi d and trapezium bones. SOFT TISSUES: Unremarkable. Foreign body in the soft tissues opposite the proximal phalanx of the second finger. Osteoarthritic c hanges of the first carpometacarpal joint. IMPRESSION: No acute osseous abnormality left hand. Polyarticular osteoarthritic changes. Reviewed, dictated and finalized at location A.
[2024-07-05 14:27] VITALS: BP 152/92; PULSE 91; RESP 20; TEMP 36.8; O2SAT 100
--- NOTE | 2024-07-05 14:27 | ED_ITS ---
HPI - Extremity Injury (Upper) General Chief Complaint: Extremity Problem,Nontraumatic Stated Complaint: L Wrist/shoulder Time Seen by Provider: 07/05/24 14:27 Source: patient Mode of arrival: ambulatory Limitations: no limitations History of Present Illness HPI narrative: 84 y/o male presented for c/o left wrist and thumb pain and swelling. Onset this morning. says yesterday he was Pulling weeds and dragging limbs and may have 'over did it.' He applied ice, aspercreme, and epson salt soak. Says it swelled more after soaking it but is now better. Endorses decreased ROM with movement of the wrist and fingers due to pain and swelling. Related Data Home Medications ?Medication ?Instructions ?Recorded ?Confirmed ?Last Taken ?Type flaxseed 1 ea PO DAILY 02/19/22 07/01/24 1 Week Ago History ~11/25/23 tavaborole 5 % topical solution 1 applic topical DAILY 04/12/24 07/01/24 Unknown History with applicator amiodarone 200 mg tablet 100 mg PO .QOD 04/28/24 07/01/24 Unknown History cholecalciferol (vitamin D3) 50 50 mcg PO DAILY 04/28/24 07/01/24 Unknown History mcg (2,000 unit) capsule sodium chloride 0.65 % nasal spray 2 spray intranasal QID PRN 07/01/24 07/01/24 Unknown History aerosol ([place] Saline) ipratropium bromide 42 mcg (0.06 intranasal 07/05/24 Unknown History %) nasal spray Allergies Allergy/AdvReac Type Severity Reaction Status Date / Time No Known Allergies Allergy Verified 07/05/24 14:24 Review of Systems Review of Systems: CONSTITUTIONAL: Denies body aches, fever, chills CARDIOVASCULAR: Denies chest pain, palpitations, or edema. RESPIRATORY: Denies cough or dyspnea. GASTROINTESTINAL: Denies abdominal pain, nausea, vomiting, or diarrhea. SKIN: Denies rash, itching, or wounds. MUSCULOSKELETAL: per hPI NEUROLOGIC: Denies numbness, tingling, or weakness. All systems reviewed & are unremarkable except as noted in HPI and below PMFSH Past Medical History Medical History Allergic rhinitis Osteoarthritis Osteoarthritis of hands, bilateral Family hx of colon cancer History of colon polyps Hematuria Chronic lower back pain Peripheral neuropathy Anemia On amiodarone therapy Bilateral lower extremity pain Hypothyroidism Varicose veins of both lower extremities JAMILAH positive has seen Rheumatology all the workup was negative except positive JAMILAH. 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, urethral dilatation History of total right knee replacement History of arthroplasty of left knee (~04/23/22) History of bladder surgery (~02/2022) s/p TURBT H/O elbow surgery H/O varicose vein ligation and stripping 2018 H/O right inguinal hernia repair (~12/2001) H/O left inguinal hernia repair (~03/1977) History of appendectomy (~1956) History of tonsillectomy (~1950) Family History Family History Sibling Family history of cardiovascular disease Family history of sleep apnea Family history of malignant neoplasm of stomach Family history of malignant neoplasm of gastrointestinal tract Family history of malignant neoplasm of breast Family history of lymphoma Grandparent Family history of malignant neoplasm Family history of primary malignant neoplasm of liver Father Family history of malignant neoplasm of gastrointestinal tract Other Carcinoma of colon Social History Social History Social History: patient lives at home with his Katy Samuels. Katy Samuels will be his surrogate if needed. He also stated that he has a living well. He does have 3 children. He denies having any pets. He wishes to be a full code for now. Smoking status: Never smoker Second hand tobacco smoke exposure: No Alcohol intake: current Drinks per week: 0 Alcohol use details: OCCASIONALLY only through special events Substance use: never Substance use type: does not use Lack of Transportation: No Lack of Food: Never True Current Housing: I Have Housing Concerned About Future Housing: No Difficulty Paying Gas/Electric Bills: No Difficulty Paying for Meds: No Currently Unemployed: No Education: High School Diploma/GED Difficulty w/ Childcare or Family Care: No Living arrangements: with family Additional living arrangements comments: SP[place]SE Occupation/Education: retired 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 Please see nursing chart for further information. There is no relevant family history pertinent to the presenting complaint Exam Narrative: GENERAL: Well-appearing CHEST: Speaks in full sentences. No respiratory distress. HEART: Regular rate and rhythm. Normal and equal peripheral pulses. EXTREMITIES: Left hand has normal sensation, slightly decreased internet site designer strength due to decreased ROM of the left hand. limited ROM of finger cascade. Left thumb swelling over thenar eminence, tender with light palpation. Mild swelling to MCP joints of left hand. Decreased range of motion with flexion/extension of wrist. No ecchymosis, erythema, warmth, No open wounds, or obvious deformity; alignment normal, pulse palpable and equal bilaterally, skin warm, dry, pink. Capillary refill less than 3 seconds. SKIN: Warm, dry, no rash. NEURO: Alert and oriented x3. PSYCH: Normal mood and affect Course Course Emergency Course: Patient is aware of diagnosis, understands and agrees to treatment plan. Anticipatory guidance given. Patient agrees to follow-up as directed and is aware of reasons to seek care at the emergency department. Portions of this record may have been created with voice recognition software Level of Care: Express Care Visit Vital Signs Vital signs: Vital Signs Temperature 98.2 F 07/05/24 14: Pulse Rate 91 07/05/24 14:27 Respiratory Rate 20 07/05/24 14:27 Blood Pressure 152/92 H 07/05/24 14:27 Pulse Oximetry 100 07/05/24 14:27 Oxygen Delivery Room Air 07/05/24 14:27 Temperature 98.2 F 07/05/24 14:27 Pulse Rate 91 07/05/24 14:27 Respiratory Rate 20 07/05/24 14:27 Blood Pressure 152/92 H 07/05/24 14:27 Pulse Oximetry 100 07/05/24 14:27 Oxygen Delivery Room Air 07/05/24 14:27 Reviewed MDM - Extremity Injury (Upper) MDM Narrative Medical decision making narrative: Discussed physical exam findings and xray. PITER applied. Advised supportive measures and signs/symptoms to go to the ER. Pt is appropriate for outpt treatm ent and f/u. Differential Diagnosis Differential diagnosis: Likely sprain and strain of wrist, fracture of wrist, fracture of hand and other (sprain/strain of wrist, Colles' fracture, wrist fracture, hand fracture, finger sprain, dislocation of finger, gout, cellulitis, arthritis, tendonitis) Imaging Data Radiologist's impression: Patient: Jac Engel : 1940 MR#: [id number] Age: 84 Acct:[id number] Loc: [facility] ADM Date: 07/05/24Attending Dr: Ordering Physician: Lisseth Flores APRN Date of Service: 07/05/24 Procedure(s): XR hand LT min 3V Accession Number(s): [id number] cc: Lisseht Flores APRN; Laurie Bryan MD~ XR hand LT min 3V Ordering provider: Lisseth Flores APRN History: . pain swelling prox Lt thumb . Comparison: March 08, 2022 FINDINGS: BONES: No acute fracture or dislocation. JOINT SPACES: Narrowing of the proximal and distal interphalangeal joints. Cystic area in the scaphoid and trapezium bones. SOFT TISSUES: Unremarkable. Foreign body in the soft tissues opposite the proximal phalanx of the second finger. Osteoarthritic changes of the first carpometacarpal joint. IMPRESSION: No acute osseous abnormality left hand. Polyarticular osteoarthritic changes. Discharge Plan Discharge Clinical Impression: Swelling of hand Patient Disposition: Home Condition: Stable Instructions: Antibiotic Form, Hand Sprain (ED) Additional Instructions: Rest and elevate the left hand, activity as tolerated Apply ice 15-20 minute intervals several times a day Keep it wrapped with PITER or use a soft wrist/thumb spica splint Take steroid as directed along with Tylenol 1000mg every 8 hours as needed Follow up with your primary care provider as needed in 3 days Go to the ER for worsening symptoms or concerns. Patient Language: Sudanese Prescriptions: New prednisone 20 mg tablet 40 mg PO DAILY 3 Days Qty: 6 0RF No Action ipratropium bromide 42 mcg (0.06 %) spray,non-aerosol INTRANASAL cholecalciferol (vitamin D3) 50 mcg (2,000 unit) capsule 50 mcg PO DAILY amiodarone 200 mg tablet 100 mg PO .QOD [place] Saline 0.65 % aerosol,spray 2 spray intranasal QID PRN tavaborole 5 % solution with applicator 1 applic topical DAILY flaxseed Powder 1 ea PO DAILY Xarelto 20 mg tablet 20 mg PO DAILY Qty: 90 2RF Rx Instructions: administer with evening meal Follow-up/Referrals: Glenys Bryan MD [Primary Care Provider] - Time of Disposition: 15:30
== END 2024-07-05 15:33 | disposition home or self-care (01) ==
PROVIDERS: Emergency Provider Nurse Practitioner Family; PCP Family Medicine
DX: R22.32 Localized swelling, mass and lump, left upper limb (principal); M19.042 Primary osteoarthritis, left hand; M19.041 Primary osteoarthritis, right hand; E03.9 Hypothyroidism, unspecified; I48.0 Paroxysmal atrial fibrillation; I34.1 Nonrheumatic mitral (valve) prolapse; G62.9 Polyneuropathy, unspecified; Z96.653 Presence of artificial knee joint, bilateral
CPT/HCPCS: 73130; 99213; G0463

== ENCOUNTER 2024-10-07 05:21 | Emergency (ER) | payer MEDICARE, SELFPAY ==
[2024-10-07 05:22] VITALS: BP 138/96; PULSE 66; RESP 17; TEMP 37; O2SAT 99
[2024-10-07 07:15] VITALS: BP 132/86; PULSE 64; RESP 16; TEMP 36.6; O2SAT 98
--- OUTSIDE RECORDS SUMMARY | 2024-10-07 07:32 | XMS_ITS | Clinical Summary ---
Author Organization [facility] Address [address] [place] [address] Care Team Providers Care Sales Development Associate Name Role Phone Annette Hsieh MD Unavailable [phone] Jorgito Mayo DO Unavailable Laurie Bryan MD Primary Care Provider Source Comments [facility],non-owned Affiliates and Associated Physician Practices is amultiple site organization consisting of ambulatory clinics and hospital sitesin [place], [place], [place] and [place]. This disclosure is being madepursuant to the Care Everywhere program and may not contain all information available regarding this patient. Last updated 17.[facility] Allergies Active Allergy Reactions Criticality Noted Date Comments Lindsay Swelling Medium 07/16/2017 Medications * Be aware that medications may not be up to date on this document. Alwaysverify current medications with the patient. amiodarone (CORDARONE) 100 MG half tablet Take 1 (one) Half Tablet by mouth every 2 days Active rivaroxaban (Xarelto) 20 MG tablet Take 1 (one) tablet by mouth once daily 03/21/2018 Active Cholecalciferol 25 MCG (1000 UT) Take 2 (two) tablets by mouth once daily Active Flaxseed, Linseed, (FLAX SEEDS PO) Take by mouth once daily Active Active Problems No known active problems Encounters Date Type Department Care Team Description 10/07/2024 1:00 PM CDT Hospital Encounter [facility] - CT Scan [address] [facility] [address] [place] [address] Annette Hsieh MD from Last 3 Months Immunizations Immunization Administration Dates Next Due PNEUMOCOCCAL PPSV23 09/13/2019 Social History Tobacco Use Types Packs/Day Years Used Date Smoking Tobacco: Never Smokeless Tobacco: Never Tobacco Cessation:Counseling Given: Not Answered Alcohol Use Standard Drinks/Week Comments No 0 (1 standard drink = 0.6 oz pur e alcohol) PHQ-2 Answer Date Recorded Patient Health Questionnaire-2 Score 0 12/23/2023 Sex and Gender Information Value Date Recorded Sex Assigned at Not on file Legal Sex Male 10:16 AM SIGNAL INTELLIGENCE ANALYST Gender Identity Male 04/11/2020 9:10 AM SIGNAL INTELLIGENCE ANALYST Sexual Orientation Not on file Last Filed Vital Signs Vital Sign Reading Time Taken Comments Blood Pressure 123/76 12/23/2023 10:07 AM CDT Pulse 62 12/23/2023 10:07 AM CDT Temperature 36.5 C (97.7 F) 12/23/2023 10:07 AM CDT Respiratory Rate 20 12/23/2023 10:07 AM CDT Oxygen Saturation 98% 12/23/2023 10:07 AM CDT roomair Inhaled Oxygen Concentration - - Weight 80.3 kg (177 lb) 12/23/2023 10:07 AM CDT Height 177.8 cm (5' 10) 12/23/2023 10:07 AM CDT Body Mass Index 25.4 12/23/2023 10:07 AM CDT Plan of Treatment Upcoming Encounters Date Type Department Care Team (Late st Contact Info) Description 10/07/2024 1:00 PM CDT Hospital Encounter [facility] Services - CT Scan [address] [facility] [address] [place] [address] [place] [address] [facility] [address] [place] [address] 12/21/2024 10:20 AM CDT Office Visit [facility] - Pulmonology [address] [facility] [address] [place] [address] [place] [address] [facility] [address] [place] [address] Health Maintenance Due Date Last Done Comments DTAP/TDAP/TD VACCINES (1 - Tdap) 1961 ZOSTER VACCINE (1 of 2) 1992 Respiratory Syncytial Virus (RSV) Vaccine Pt: or over 60 yrs (1 - 1-dose 75+ series) 2017 PNEUMOCOCCAL VACCINE 50+ (2 of 2 - PCV) 09/12/2020 09/13/2019 COVID-19 VACCINE (1 - 2023-2 5 season) 2023 DEPRESSION SCREENING 03/24/2024 12/23/2023 MEDICARE AWV CALENDAR YEAR 2024 INFLUENZA VACCINE (#1) 2024 HEPATITIS B VACCINE Aged Out No longe r eligible based on patient's age to complete this topic HIB VACCINE Aged Out No longer eligi ble based on patient's age to complete this topic HPV VACCINE Aged Out No longer eligi ble based on patient's age to complete this topic MENINGOCOCCAL (Group B) VACC INE SHARED DECISION-MAKING Aged Out No longer eligibl e based on patient's age to complete this topic MENINGOCOCCAL GROUPS A/C/Y/W VACCINE Aged Out No longer eligible b ased on patient's age to complete this topic Insurance [facility] MANAGED MEDICARE ADV Care Teams Sales Development Associate Relationship Specialty Start Date End Date Laurie Bryan MD [address] [place] [address] PCP - General Family Medicine 10/12/18 [place] [id number] [address] Pulmonary Disease 07/16/17 Jorgito Mayo DO [address] [place] [address] Pneudraulic Systems Mechanic Cardiology 08/19/17
--- OUTSIDE RECORDS SUMMARY | 2024-10-07 07:32 | XMS_ITS | Clinical Summary ---
Author Organization [facility] Address [address] [place] [address] Care Team Providers Care Road Roller Engineer Name Role Phone Laurie Bryan MD Primary Care Provider Allergies Active Allergy Reactions Criticality Noted Date Comments [place] Extract Edema Medium 04/08/2018 Cheek swelled after eating strawberry Medications amiodarone (PACERONE) 200 mg tablet Take 0.5 tablets (100 mg total) by mouth every other day Take 1 tab every other day 8 Active cholecalciferol (VITAMIN D-3) 25 mcg (1,000 unit) tablet Take 2 tablets (2,000 Units total) by mouth daily with lunch Take 2 tabs daily Active flaxseed powder Take by mouth daily 1 heaping teaspoon Active carboxymethylcel lulose (REFRESH LIQUIGEL) 1 % ophthalmic liquid gel drops Administer 1 drop into both eyes as needed Active rivaroxaban (XARELTO) 20 mg tablet Take 1 tablet (20 mg total) by mouth daily with dinner 3 Active acetaminophen 500 mg capsuleIndicatio ns:Pain Take 2 capsules (1,000 mg total) by mouth every 8 (eight) hours 90 tablet 3 Active benzonatate (TESSALON) 200 mg capsuleIndicatio ns:Acute lower respiratory infection Take 1 capsule (200 mg total) by mouth 3 (three) times a day as needed for cough keep tessalon out of reach of children, especially children under the age of 10, due to possible serious risk such as if ingested by children under the age of 10. 30 capsule 4 Active azelastine (ASTELIN) 137 mcg (0.1 %) nasal sprayIndications :Acute pansinusitis, recurrence not specified Administer 1 spray into each nostril 2 (two) times a day Use in each nostril as directed 30 mL 4 Active Active Problems Problem Noted Date Diagnosed Date Arthritis of right knee 01/23/2023 Diastolic dysfunction 01/16/2023 Paroxysmal A-fib 01/16/2023 Right bundle branch block (RBBB) 01/16/2023 SHAWN on CPAP 01/16/2023 Primary osteoarthritis of right knee 11/21/2022 Primary osteoarthritis of left knee 02/13/2022 Overview (02/13/2022): Added automatically from request for surgery [id number] Neuropathy 10/19/2021 Assessment & Plan (10/19/2021 5:35 PM CDT): Will send additional bloodwork today Referral to Neuromuscle for neuropathy with severe pain Referral to Pain Management (Dr. 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 n 05/07/2018 Overview (05/07/2018): Added automatically from request for surgery [id number] Immunizations Immunization Administration Dates Next Due Pneumococcal Polysaccharide PPV23 09/13/2019 Surgical History Surgery Date Site/Laterality Comments BLEPHAROPLASTY 03/24/2009 - 03/23/2010 Bilateral INGUINAL HERNIA REPAIR 03/24/2001 - 03/23/2002 Right THUMB SURGERY 03/24/1989 - 03/23/1990 Left INGUINAL HERNIA REPAIR 03/24/1977 - 03/23/1978 Left ELBOW SURGERY 03/24/1957 - 03/23/1958 Left APPENDECTOMY 03/24/1956 - 03/23/1957 TONSILLECTOMY 03/24/1949 - 03/23/1950 FL UPPER GI AIR CONTRAST W KUB 05/29/2021 Bilateral VEIN LIGATION AND STRIPPING 03/24/2018 - 03/23/2019 Mario dobbs TOTAL KNEE ARTHROPLASTY 03/24/2022 - 04/23/2022 Left COLONOSCOPY Medical History Medical History Date Comments Atrial fibrillation (HCC) SHAWN (obstructive sleep apnea) GERD (gastroesophageal reflux disease) Arthritis Varicose vein of leg [place] (hard of hearing) Peripheral neuropathy Bladder cancer (HCC) Paroxysmal A-fib (HCC) 01/16/2023 Family History Medical History Relation Name Comments Heart disease Brother 1 Heart disease Brother 3 No Known Problems Father No Known Problems Mother Anesthesia problems Neg Hx Relation Name Status Comments Brother 1 Brother 2 Brother 3 Father Mother Social History Tobacco Use Types Packs/Day Years Used Date Smoking Tobacco: Never Passive Smoke Exposure: Never Smokeless Tobacco: Never Tobacco Cessation:Counseling Given: Not Answered Alcohol Use Standard Drinks/Week Comments Yes 2 (1 standard drink = 0.6 oz pur e alcohol) rare AUDIT-C Answer Date Recorded Q1: How often do you have a drink containing alc ohol? Monthly or less 12/24/2022 Q2: How many drinks containi ng alcohol do you have on a typical day when you are drinking? 1 or 2 12/24/2022 Q3: How often do you have si x or more drinks on one occasion? Never 12/24/2022 Hunger Vital Sign Answer Date Recorded Within the past 12 months, y ou worried that your food would run out before you got the money to buy more. Never true 08/21/19 23 Within the past 12 months, t he food you bought just didn't last and you didn't have money to get more. Never true 08/20/2022 Personal Safety Answer Date Recorded Have you ever been in or are you currently in a harmful physical or emotional relationship or is someone making you feel afraid or unsafe? Denies 01/23/2023 Sex and Gender Information Value Date Recorded Sex Assigned at Not on file Legal Sex Male 2:05 PM HIRED HAND Gender Identity Not on file Sexual Orientation Not on file Obstetrics History Last Filed Vital Signs Vital Sign Reading Time Taken Comments Blood Pressure 126/78 05/09/2023 11:00 AM HIRED HAND Pulse 66 05/09/2023 11:00 AM HIRED HAND Temperature 36.7 C (98 F) 05/09/2023 11:00 AM HIRED HAND Respiratory Rate 20 05/09/2023 11:00 AM HIRED HAND Oxygen Saturation 98% 05/09/2023 11:00 AM HIRED HAND Inhaled Oxygen Concentration - - Weight 81.2 kg (179 lb) 05/09/2023 11:00 AM HIRED HAND Height 177.8 cm (5' 10) 05/09/2023 11:00 AM HIRED HAND Body Mass Index 25.68 05/09/2023 11:00 AM HIRED HAND Plan of Treatment Health Maintenance Due Date Last Done Comments Depression Screening 1942 DTaP/Tdap/Td Vaccine (1 - Tdap) 1953 Hepatitis B Screening 1960 Zoster Vaccine (1 of 2) 1992 Well Visit 65+ 2007 Pneumococcal vaccine 65+ (2 of 2 - PCV) 09/12/2020 0 09/13/2019 Fall Risk Assessment 01/25/2024 01/24/2023 Influenza Vaccine (Season Ended) 2024 Goals Goal Patient Goal Type Associated Problems Recent Progress Patient-Stated? Author CCM Chronic Pain Care Plan Chronic Care Management Reshma Kent, RN Note: Problem: Chronic Pain Goals: 1. Minimize further functional decline 2. Maximize quality of life 3. Control pain Strategies: - Activity/exercise program recommendation - Conservative stepwise pain medicine strategy with multi-disciplinary approach - Recommend healthy lifestyle strategies and compensatory methods as needed Medical Devices Implanted Type Area Belt Cutter Device Identifier Shelf Expiration Date Model / Serial / Lot [employer] Simplex P Full Dose Radiopaque Preblend Cement Bone Tobramycin 6197-9-010 - Sna - [id number] Implanted:Qty: 1 on 01/23/2023 by Lenin Powell MD at [facility] Bone Cement Right: Knee [employer] 04/23/2024 6197-9-010 / [id number] / [id number] Description:Implant pause pe rformed. Implant times approximate [employer] Simplex P Full Dose Radiopaque Preblend Cement Bone Tobramycin 6197-9-010 - Sna - [id number] Implanted:Qty: 1 on 01/23/2023 by Lenin Powell MD at [facility] Bone Cement Right: Knee [employer] 04/23/2024 6197-9-010 / [id number] / [id number] Description:Implant pause pe rformed. Implant times approximate [employer] Simplex P Full Dose Radiopaque Preblend Cement Bone Tobramycin 6197-9-010 - Sna - [id number] Implanted:Qty: 1 on 01/23/2023 by Lenin Powell MD at [facility] Bone Cement Right: Knee [employer] 04/23/2024 6197-9-010 / NA / [id number] Description:Implant pause pe rformed. Implant times approximate [employer] Attune Cemented Cruciate Retaining Knee Right 6 Component Femoral [id number] - Sna - [id number] Implanted:Qty: 1 on 01/23/2023 by Lenin Powell MD at [facility] Other - see comments Right: Knee [employer] [id number] 08/21/2032 [id number] / NA / [id number] Description:Implant pause pe rformed. Implant times approximate [employer] Attune S+ Cement Fix Bearing Knee 6 Baseplate Tibial [id number] - Sna - [id number] Implanted:Qty: 1 on 01/23/2023 by Lenin Powell MD at [facility] Other - see comments Right: Knee [employer] [id number] 11/21/2032 [id number] / NA / [id number] Description:Implant pause pe rformed. Implant times approximate [employer] Simplex P Full Dose Radiopaque Preblend Cement Bone Tobramycin 6197-9-010 - [id number] Implanted:Qty: 1 on 04/23/2022 by Lenin Powell MD at [facility] Left: Knee [employer] [id number] 08/22/2023 6197-9-010 / / [id number] [employer] Simplex P Full Dose Radiopaque Preblend Cement Bone Tobramycin 6197-9-010 - [id number] Implanted:Qty: 1 on 04/23/2022 by Lenin Powell MD at [facility] Left: Knee [employer] [id number] 07/22/2023 6197-9-010 / / [id number] [employer] Simplex P Full Dose Radiopaque Preblend Cement Bone Tobramycin 6197-9-010 - [id number] Implanted:Qty: 1 on 04/23/2022 by Lenin Powell MD at [facility] Left: Knee [employer] [id number] 08/22/2023 6197-9-010 / / [id number] [employer] Attune S+ Cement Fix Bearing Knee 6 Baseplate Tibial [id number] - [id number] Implanted:Qty: 1 on 04/23/2022 by Lenin Powell MD at [facility] Left: Knee [employer] [id number] 07/22/2031 [id number] / / [id number] [employer] Attune Cemented Cruciate Retaining Knee Left 6 Component Femoral [id number] - [id number] Implanted:Qty: 1 on 04/23/2022 by Lenin Powell MD at [facility] Left: Knee [employer] [id number] 05/21/2028 [id number] / / [id number] [employer] Insert Attune Left Medial Stabilized Size 6 5mm [id number] - [id number] Implanted:Qty: 1 on 04/23/2022 by Lenin Powell MD at [facility] Left: Knee [employer] 03/23/2030 [id number] / / [id number] [employer] Insert Tibial Knee Fixed Rm Posterior Stabilized Attune 8mm Size 6 Polyethylene [id number] - [id number] Implanted:Qty: 1 on 01/23/2023 by Lenin Powell MD at [facility] Right: Knee [employer] [id number] 11/21/2030 [id number] / / [id number] Insurance [facility] MEDICARE ADVANTAGE [facility] MEDICARE Address: [address] [address] [place] [address] MEDICARE [facility] MEDICARE UHC MEDICARE ADVANTAGE [facility] MEDIC[facility] Address: [address] [address] [place] [address] [facility] MEDICARE ADVANTAGE [facility] MEDICARE Address: [facility] [address] [place] [address] Advance Directives For more information, please contact: [phone] Documents on File Type Date Recorded Patient Crematory Attendant Expl anation ADVANCE DIRECTIVE 04/23/2022 5:52 AM Power of Audiologist-Medical * Full Code (Latest Code Status on File) Date Activated Date Inactivated Comments 01/23/2023 5:33 PM 01/24/2023 4:10 PM * Full Code Date Activated Date Inactivated Comments 04/23/2022 12:57 PM 04/24/2022 4:[address] Roller Engineer Relationship Specialty Start Date End Date Laurie Bryan MD PCP - General Family Practice 12/31/17
--- OUTSIDE RECORDS SUMMARY | 2024-10-07 07:32 | XMS_ITS | Encounter Summary ---
Author Organization [facility] Address [address] [place] [address] Care Team Providers Care Carton Wrapper Name Role Phone Annette Hsieh MD Unavailable [phone] Gael Jorgito M DO Unavailable Laurie Bryan MD Primary Care Provider Reason for Visit * Radiology Services (Routine) - Authorized Specialty Diagnoses / Procedures Referred By Frank dobbs Referred To Contact CT Scan Diagnoses Lung nodule Procedures [place] [address] [facility] [address] [place] [address] Phone: tel: fax: Referral ID Status Reason Start Date Expiration Date V isits Requested Visits Authorized [id number] Authorized 01/15/2024 01/14/2025 1 1 Encounter Details Date Type Department Care Team (Late st Contact Info) Description 10/07/2024 1:00 PM CDT Hospital Encounter [facility] Imaging Services - CT Scan [address] [facility] [address] [place] [address] [place] [address] [facility] [address] [place] [address] Social History Tobacco Use Types Packs/Day Years Used Date Smoking Tobacco: Never Smokeless Tobacco: Never Alcohol Use Standard Drinks/Week Comments No 0 (1 standard drink = 0.6 oz pur e alcohol) PHQ-2 Answer Date Recorded Patient Health Questionnaire-2 Score 0 12/23/2023 Sex and Gender Information Value Date Recorded Sex Assigned at Not on file Legal Sex Male 10:16 AM INVOICE MACHINE OPERATOR Gender Identity Male 04/11/2020 9:10 AM INVOICE MACHINE OPERATOR Sexual Orientation Not on file documented as of this encounter Plan of Treatment Upcoming Encounters Date Type Department Care Team (Late st Contact Info) Description 12/21/2024 10:20 AM CDT Office Visit [facility] - Pulmonology [address] [facility] [address] [place] [address] [place] [address] [facility] [address] [place] [address] Scheduled Orders Name Type Priority Associated Diagnoses Orde r Schedule CT Chest Wo Contrast Imaging Routine Lung nodule 1 Occurrences starting 01/15/2024 until 01/14/2025 documented as of this encounter Visit Diagnoses Not on filedocumented in this encounter Care Teams Carton Wrapper Relationship Specialty Start Date End Date Laurie Bryan MD [address] [place] [address] PCP - General Family Medicine 10/12/18 [place] [address] [facility] [address] [place] [address] Pulmonary Disease 07/16/17 Jorgito Mayo DO [address] [facility] [address] [place] [address] [facility] 08/19/17 documented as of this encounter
--- OUTSIDE RECORDS SUMMARY | 2024-10-07 07:32 | XMS_ITS | Referral Summary ---
Author Organization [facility] Address [address] [place] [address] Care Team Providers Care Sas Sql Developer Name Role Phone Laurie Bryan MD Primary Care Provider Allergies Active Allergy Reactions Criticality Noted Date Comments [place] Extract Edema Medium 04/08/2018 Cheek swelled after [...] (02/13/2022): Added automatically from request for surgery [id number] Neuropathy 10/19/2021 Assessment & Plan (10/19/2021 5:35 PM CDT): Will send additional bloodwork today Referral to Neuromuscle for neuropathy with severe pain Referral to Pain Management (Dr. 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 n 05/07/2018 Overview (05/07/2018): Added automatically from request for surgery [id number] Immunizations Immunization Administration Dates Next Due Pneumococcal Polysaccharide PPV23 09/13/2019 Social History Tobacco Use Types Packs/Day [...] the money to buy more. Never true 05/30/20 23 Within the past 12 months, t [...] on file Legal Sex Male 2:05 PM MINERAL WOOL INSULATION SUPERVISOR Gender Identity Not on file Sexual Orientation Not on file Last Filed Vital Signs Vital Sign Reading Time Taken Comments Blood Pressure 126/78 05/09/2023 11:00 AM MINERAL WOOL INSULATION SUPERVISOR Pulse 66 05/09/2023 11:00 AM MINERAL WOOL INSULATION SUPERVISOR Temperature 36.7 C (98 F) 05/09/2023 11:00 AM MINERAL WOOL INSULATION SUPERVISOR Respiratory Rate 20 05/09/2023 11:00 AM MINERAL WOOL INSULATION SUPERVISOR Oxygen Saturation 98% 05/09/2023 11:00 AM MINERAL WOOL INSULATION SUPERVISOR Inhaled Oxygen Concentration - - Weight 81.2 kg (179 lb) 05/09/2023 11:00 AM MINERAL WOOL INSULATION SUPERVISOR Height 177.8 cm (5' 10) 05/09/2023 11:00 AM MINERAL WOOL INSULATION SUPERVISOR Body Mass Index 25.68 05/09/2023 11:00 AM MINERAL WOOL INSULATION SUPERVISOR Plan of Treatment Not on file Goals Goal Patient Goal Type Associated Problems [...] as needed Medical Devices Implanted Type Area Boilermaker Ship Device Identifier Shelf Expiration Date Model / Serial / Lot [employer] Simplex P Full Dose Radiopaque Preblend Cement Bone Tobramycin 6197-9-010 - Sna - [id number] Implanted:Qty: 1 on 01/23/2023 by Lenin Powell MD at [facility] Bone Cement Right: Knee [employer] 04/23/2024 6197-9-010 / NA / [id number] Description:Implant pause pe rformed. Implant times approximate [employer] Simplex P Full Dose Radiopaque Preblend Cement Bone Tobramycin 6197-9-010 - Sna - [id number] Implanted:Qty: 1 on 01/23/2023 by Lenin Powell MD at [facility] Bone Cement Right: Knee [employer] 04/23/2024 6197-9-010 / NA / [id number] Description:Implant pause pe rformed. Implant times approximate [employer] Simplex P Full Dose Radiopaque Preblend Cement Bone Tobramycin 6197-9-010 - Sna - [id number] Implanted:Qty: 1 on 01/23/2023 by Lenin Powell MD at [facility] Bone Cement Right: Knee [employer] 04/23/2024 6197-9-010 / NA / [id number] Description:Implant pause pe rformed. Implant times approximate [employer] Attune Cemented Cruciate Retaining Knee Right 6 Component Femoral [id number] - Sna - [id number] Implanted:Qty: 1 on 01/23/2023 by Lenin Powell MD at [facility] Other - see comments Right: Knee [employer] [id number] 08/21/2032 [id number] / NA / [id number] Description:Implant pause pe rformed. Implant times approximate [employer] Attune S+ Cement Fix Bearing Knee 6 Baseplate Tibial [id number] - Sna - [id number] Implanted:Qty: 1 on 01/23/2023 by Lenin Powell MD at [facility] Other - see comments Right: Knee [employer] [id number] 11/21/2032 [id number] / NA / [id number] Description:Implant pause pe rformed. Implant times approximate [employer] Simplex P Full Dose Radiopaque Preblend Cement Bone Tobramycin 6197-9-010 - [id number] Implanted:Qty: 1 on 04/23/2022 by Lenin Powell MD at [facility] Left: Knee [employer] [id number] 08/22/2023 6197-9-010 / / [id number] [employer] Simplex P Full Dose Radiopaque Preblend Cement Bone Tobramycin 6197-9-010 - [id number] Implanted:Qty: 1 on 04/23/2022 by Lenin Powell MD at [facility] Left: Knee [employer] [id number] 07/22/2023 6197-9-010 / / [id number] [employer] Simplex P Full Dose Radiopaque Preblend Cement Bone Tobramycin 6197-9-010 - [id number] Implanted:Qty: 1 on 04/23/2022 by Lenin Powell MD at [facility] Left: Knee [employer] [id number] 08/22/2023 6197-9-010 / / [id number] [employer] Attune S+ Cement Fix Bearing Knee 6 Baseplate Tibial [id number] - [id number] Implanted:Qty: 1 on 04/23/2022 by Lenin Powell MD at [facility] Left: Knee [employer] [id number] 07/22/2031 [id number] / / [id number] [employer] Attune Cemented Cruciate Retaining Knee Left 6 Component Femoral [id number] - [id number] Implanted:Qty: 1 on 04/23/2022 by Lenin Powell MD at [facility] Left: Knee [employer] [id number] 05/21/2028 [id number] / / [id number] [employer] Insert Attune Left Medial Stabilized Size 6 5mm [id number] - [id number] Implanted:Qty: 1 on 04/23/2022 by Lenin Powell MD at [facility] Left: Knee [employer] 03/23/2030 [id number] / / [id number] [employer] Insert Tibial Knee Fixed Rm Posterior Stabilized Attune 8mm Size 6 Polyethylene [id number] - [id number] Implanted:Qty: 1 on 01/23/2023 by Lenin Powell MD at [facility] Right: Knee [employer] [id number] 11/21/2030 [id number] / / [id number] Insurance [facility] MEDICARE ADVANTAGE MEDICARE [facility] MEDICARE [facility] MEDICARE ADVANTAGE [facility] MEDICARE ADVANTAGE Advance Directives For more information, please contact: [phone] Documents on File Type Date Recorded Patient Part Time Receptionist Expl anation ADVANCE DIRECTIVE 04/23/2022 5:52 AM Power of Soakers Supervisor-Medical * Full Code (Latest Code Status on File) Date Activated Date Inactivated Comments 01/23/2023 5:33 PM 01/24/2023 4:10 PM * Full Code Date Activated Date Inactivated Comments 04/23/2022 12:57 PM 04/24/2022 4:17 PM Care Teams Sas Sql Developer Relationship Specialty Start Date End Date Laurie Bryan MD PCP - General Family Practice 12/31/17
--- OUTSIDE RECORDS SUMMARY | 2024-10-07 07:32 | XMS_ITS | Clinical Summary ---
Author Organization [facility] Address [address] [place] [address] Phone Care Team Providers Care Field Pipe Lines Supervisor Name Role Phone Unavailable Primary Care Provider Unavailabl e Medications cholecalciferol , Vitamin D3, (VITAMIN D3) 25 mcg (1,000 unit) Capsule Take 25 mcg by mouth daily. 2 tablets daily Active rivaroxaban (Xarelto) 20 mg Tablet Take 20 mg by mouth daily with supper. Active amiodarone (CORDARONE) 100 mg Tablet Take 100 mg by mouth every other day. Active ipratropium bromide (ATROVENT) 42 mcg (0.06 %) [place]ier, Non-Aerosol Administer 2 Sprays in each nostril 3 times daily as needed for Rhinitis. 15 mL 5 5 Active pantoprazole (PROTONIX) 40 mg Tablet, Delayed Release (E.C.) Take 1 Tablet (40 mg) by mouth daily. 90 Tablet 5 Active Active Problems No known active problems Encounters Date Type Department Care Team Description 10/05/2024 External Device Data STL ABSTRACTION Provider, Abstract 09/07/2024 External Device Data STL ABSTRACTION Provider, Abstract 09/06/2024 Telephone [facility] [place] [address] [place] [address] [address] [place] [address] Mitchell Williamson PA Results 09/06/2024 Telephone [facility], [facility] [address] [facility] [address] [place] [address] Mitchell Williamson PA Results 09/01/2024 12:59 PM CDT - 09/01/2024 11:59 PM CDT [facility] [address] [facility] [address] [place] [id number] Mitchell Williamson PA Discharge Disposition: Home or Self Care 09/01/2024 12:39 PM CDT - 09/01/2024 11:59 PM CDT Hospital Encounter [facility] CT Scan [place] [address] [facility] [address] [place] [phone] Mitchell Williamson PA Discharge Disposition: Home or Self Care 08/12/2024 External Device Data STL ABSTRACTION Provider, Abstract 08/10/2024 10:20 AM CDT Office Visit [facility] [address] [facility] [address] [place] [address] Mitchell Williamson PA Chronic pansinusitis (Primary Dx); Thyroid nodule; Laryngopharyngeal reflux (LPR) 08/10/2024 External Device Data STL ABSTRACTION Provider, Abstract 07/27/2024 External Device Data STL ABSTRACTION Provider, Abstract from Last 3 Months Social History Tobacco Use Types Packs/Day Years Used Date Smoking Tobacco: Never Assessed Sex and Gender Information Value Date Recorded Sex Assigned at Not on file Legal Sex Male 10:44 AM CDT Gender Identity Not on file Sexual Orientation Not on file Last Filed Vital Signs Vital Sign Reading Time Taken Comments Blood Pressure - - Pulse - - Temperature - - Respiratory Rate 16 02/10/2024 9:23 AM SWITCHBOARD TROUBLESHOOTER Oxygen Saturation - - Inhaled Oxygen Concentration - - Weight 77.1 kg (170 lb) 02/10/2024 9:23 AM SWITCHBOARD TROUBLESHOOTER Height 177.8 cm (5' 10) 02/10/2024 9:23 AM SWITCHBOARD TROUBLESHOOTER Body Mass Index 24.39 02/10/2024 9:23 AM SWITCHBOARD TROUBLESHOOTER Plan of Treatment Upcoming Encounters Date Type Department Care Team (Late st Contact Info) Description 11/11/2024 10:20 AM CDT Office Visit [facility] [address] [facility] [address] [place] [address] Mitchell Williamson PA [address] [facility] [place] [address] Health Maintenance Due Date Last Done Comments DTAP/TDAP/TD VACCINES (1 - Tdap) 1961 ZOSTER VACCINE (1 of 2) 1992 RSV VACCINE (60+ or ) (1 - 1-dose 75+ series) 2017 PNEUMOCOCCAL VACCINE 50+ YEARS (2 of 2 - PCV) 09/13/19 21 09/13/2019 INFLUENZA VACCINE (#1) 2024 Procedures Procedure Name Priority Date/Time Associated Diagnosis Comments US HEAD NECK TISSUES Routine 09/01/2024 1:19 PM CDT Chronic pansinusitis Thyroid nodule CT SINUS STEALTH PROTOCOL Routine 09/01/2024 12:55 PM CDT Chronic pansinusitis from Last 3 Months Results * US HEAD NECK TISSUES (09/01/2024 1:19 PM CDT) Anatomical Region Laterality Modality Head Ultrasound 09/01/2024 1:20 PM CDT Impressions 09/01/2024 1:38 PM CDT IMPRESSION: 1. A 7 mm simple cyst within the isthmus which is consistent with a TI-RADS category 1 nodule and no further follow-up is recommended. 2. Mildly inhomogeneous thyroid gland. ACR 2017 TI-RADS Recommendations Ti-Rads 5 Highly suspicious (risk of malignancy > 20%) >=1 cm: FNA 0.5-0.9 cm: follow-up US every year for 5 years <0.5 cm: no further evaluation Ti-Rads 4 Moderately suspicious (risk of malignancy 5-20%) >=1.5 cm: FNA 1-1.4 cm: follow-up US in 1, 2, 3, and 5 years <1.0 cm: no further evaluation Ti-Rads 3 Mildly suspicious (risk of malignancy 2-5%) >=2.5 cm: FNA 1.5-2.4 cm: follow-up US in 1, 3, and 5 years <1.5 cm: no further evaluation Ti-Rads 2 Not suspicious (risk of malignancy < 2%) No FNA or follow-up US Ti-Rads 1 Benign (risk of malignancy < 2%) No FNA or follow-up US DICTATION LOCATION: Location 4 Narrative 09/01/2024 1:38 PM CDT US HEAD NECK TISSUES DATE: 09/01/2024 1:19 PM HISTORY: Thyroid nodule. COMPARISON: None. FINDINGS: Right Lobe: Enlarged and mildly inhomogeneous and measures 5.2 cm x 2.2 cm x 2.6 cm. No well-defined thyroid nodule. Left Lobe: Normal in size and is mildly inhomogeneous and measures 5.1 cm x 1.7 cm x 1.6 cm. No thyroid nodule. Isthmus: 4 mm. 7 mm simple cyst in the isthmus. Additional Findings: None. Procedure Note Sean Emmanuel MD - 09/01/2024 US HEAD NECK TISSUES DATE: 09/01/2024 1:19 PM HISTORY: Thyroid nodule. COMPARISON: None. FINDINGS: Right Lobe: Enlarged and mildly inhomogeneous and measures 5.2 cm x 2.2 cm x 2.6 cm. No well-defined thyroid nodule. Left Lobe: Normal in size and is mildly inhomogeneous and measures 5.1 cm x 1.7 cm x 1.6 cm. No thyroid nodule. Isthmus: 4 mm. 7 mm simple cyst in the isthmus. Additional Findings: None. IMPRESSION: 1. A 7 mm simple cyst within the isthmus which is consistent with a TI-RADS category 1 nodule and no further follow-up is recommended. 2. Mildly inhomogeneous thyroid gland. ACR 2017 TI-RADS Recommendations Ti-Rads 5 Highly suspicious (risk of malignancy > 20%) >=1 cm: FNA 0.5-0.9 cm: follow-up US every year for 5 years <0.5 cm: no further evaluation Ti-Rads 4 Moderately suspicious (risk of malignancy 5-20%) >=1.5 cm: FNA 1-1.4 cm: follow-up US in 1, 2, 3, and 5 years <1.0 cm: no further evaluation Ti-Rads 3 Mildly suspicious (risk of malignancy 2-5%) >=2.5 cm: FNA 1.5-2.4 cm: follow-up US in 1, 3, and 5 years <1.5 cm: no further evaluation Ti-Rads 2 Not suspicious (risk of malignancy < 2%) No FNA or follow-up US Ti-Rads 1 Benign (risk of malignancy < 2%) No FNA or follow-up US DICTATION LOCATION: Location 4 us Mitchell RITCHIE US ORDERABLES Final Result * CT SINUS STEALTH PROTOCOL (09/01/2024 12:55 PM CDT) Anatomical Region Laterality Modality Head Computed Tomogra phy 09/01/2024 1:49 PM CDT Impressions 09/01/2024 2:14 PM CDT IMPRESSION: 1. Mild mucosal thickening in the paranasal sinuses. 2. Rightward nasal septal deviation. DICTATION LOCATION: Location 4 Narrative 09/01/2024 2:14 PM CDT EXAMINATION: CT OF THE MAXILLOFACIAL REGION WITHOUT CONTRAST DATE: 09/01/2024 12:55 PM HISTORY: Chronic pansinusitis. TECHNIQUE: Noncontrast axial CT images of the maxillofacial region were obtained. Images were reconstructed in the coronal and sagittal planes. The examination was performed with the adjustment of mA according to the patient size and/or the use of Iterative Reconstruction Technique. COMPARISON: None FINDINGS: Frontal sinuses: Underdeveloped with mild mucosal thickening. Ethmoid air cells: Mild mucosal thickening bilaterally. Maxillary sinuses: Mild mucosal thickening. Ostiomeatal units: Patent. Sphenoid sinuses: Clear. Nasal septum: Rightward deviation. Mastoid air cells: Clear. Anatomic variants: None. Nasal cavity: Unremarkable. Orbits: Bilateral lens replacements. Visualized brain: Unremarkable. Visualized soft tissues: Unremarkable. Procedure Note Partha Meza MD - 09/01/2024 EXAMINATION: CT OF THE MAXILLOFACIAL REGION WITHOUT CONTRAST DATE: 09/01/2024 12:55 PM HISTORY: Chronic pansinusitis. TECHNIQUE: Noncontrast axial CT images of the maxillofacial region were obtained. Images were reconstructed in the coronal and sagittal planes. The examination was performed with the adjustment of mA according to the patient size and/or the use of Iterative Reconstruction Technique. COMPARISON: None FINDINGS: Frontal sinuses: Underdeveloped with mild mucosal thickening. Ethmoid air cells: Mild mucosal thickening bilaterally. Maxillary sinuses: Mild mucosal thickening. Ostiomeatal units: Patent. Sphenoid sinuses: Clear. Nasal septum: Rightward deviation. Mastoid air cells: Clear. Anatomic variants: None. Nasal cavity: Unremarkable. Orbits: Bilateral lens replacements. Visualized brain: Unremarkable. Visualized soft tissues: Unremarkable. IMPRESSION: 1. Mild mucosal thickening in the paranasal sinuses. 2. Rightward nasal septal deviation. DICTATION LOCATION: Location [address] ORDERABLES Final Result from Last 3 Months Insurance [facility] [id number]
--- OUTSIDE RECORDS SUMMARY | 2024-10-07 07:32 | XMS_ITS | Encounter Summary ---
Author Organization [facility] Address [address] [place] [address] Care Team Providers Care Hydrogenation Operator Name Role Phone Unavailable Primary Care Provider Unavailabl e Encounter Details Date Type Department Care Team (Late st Contact Info) Description 10/05/2024 External Device Data STL ABSTRACTION Provider, Abstract NO ADDRESS ON FILE Social History Tobacco Use Types Packs/Day Years Used Date Smoking Tobacco: Never Assessed Sex and Gender Information Value Date Recorded Sex Assigned at Not on file Legal Sex Male 10:44 AM CDT Gender Identity Not on file Sexual Orientation Not on file documented as of this encounter Plan of Treatment Upcoming Encounters Date Type Department Care Team (Late st Contact Info) Description 11/11/2024 10:20 AM CDT Office Visit [facility] [place] [facility] [address] [facility] [address] [place] [address] Mitchell Williamson PA [address] [facility] [facility] [address] [place] [address] documented as of this encounter Visit Diagnoses Not on filedocumented in this encounter
--- OUTSIDE RECORDS SUMMARY | 2024-10-07 07:32 | XMS_ITS | Clinical Summary ---
Author Organization [facility] Address [address] [place], [address] [address] Phone Care Team Providers Care Felt Strip Finisher Name Role Phone Laurie Bryan MD Primary Care Provider Allergies Active Allergy Reactions Criticality Noted Date Comments [place] Extract Swelling 04/08/2018 Cheek swelled after eating strawberry Medications XARELTO 20 MG Tablet Take 20 mg by mouth daily. 03/21/2018 Active amiodarone (CORDARONE) 200 MG Tablet Take 200 mg by mouth daily. 03/21/2018 Active Aspirin 81 MG Tablet Take 81 mg by mouth daily. Active Family History Medical History Relation Name Comments Cancer Brother 1 prostate Colon Polyps Brother 2 on wall of col on needing surgery Heart Attack Brother 2 Colon Polyps Brother 3 requiring surge ry Colon Polyps Brother 4 requiring surge ry Cancer Father colon? rectal? Cancer Maternal Grandfather stomach Cancer Paternal Aunt 1 colon Cancer Paternal Aunt 2 colon Cancer Paternal Grandmother liver Cancer Sister breast, lymph n odes, liver, bones Relation Name Status Comments Brother 1 Brother 2 Brother 3 Brother 4 Father Maternal Grandfather Mother Paternal Aunt 1 Paternal Aunt 2 Paternal Grandmother Sister Social History Tobacco Use Types Packs/Day Years Used Date Smoking Tobacco: Never Smokeless Tobacco: Never Alcohol Use Standard Drinks/Week Comments Yes 0 (1 standard drink = 0.6 oz pur e alcohol) rarely Sex and Gender Information Value Date Recorded Sex Assigned at Not on file Legal Sex Male 10:06 PM CDT Gender Identity Not on file Sexual Orientation Not on file Last Filed Vital Signs Vital Sign Reading Time Taken Comments Blood Pressure 119/72 04/22/2018 9:03 AM CHROMOSOMAL DISORDERS COUNSELOR Pulse 63 04/22/2018 9:03 AM CHROMOSOMAL DISORDERS COUNSELOR Temperature 36 C (96.8 F) 04/22/2018 9:03 AM CHROMOSOMAL DISORDERS COUNSELOR Respiratory Rate 14 04/22/2018 9:03 AM CHROMOSOMAL DISORDERS COUNSELOR Oxygen Saturation 98% 04/22/2018 9:03 AM CHROMOSOMAL DISORDERS COUNSELOR Inhaled Oxygen Concentration - - Weight 79.8 kg (176 lb) 04/22/2018 7:24 AM CHROMOSOMAL DISORDERS COUNSELOR Height 177.8 cm (5' 10) 04/22/2018 7:24 AM CHROMOSOMAL DISORDERS COUNSELOR Body Mass Index 25.25 04/22/2018 7:24 AM CHROMOSOMAL DISORDERS COUNSELOR Plan of Treatment Health Maintenance Due Date Last Done Comments Hepatitis C Virus (HCV) Screening 1940 TdaP Immunization 1940 Pneumococcal Immunization (5 0+ years) (1 of 1 - PCV) 1992 Zoster Immunization (1 of 2) 1992 Respiratory Syncytial Virus (RSV) Immunization (Adult) (1 - 1-dose 75+ series) 2017 SARS-COV-2 Immunization (1 - season) 2023 Influenza Immunization (#1) 2024 Hepatitis B Immunization Aged Out No longer eligible based on patient's age to complete this topic Human Papillomavirus (HPV) Immunization Aged Out No longer eligible b ased on patient's age to complete this topic Meningococcal Immunization (ACWY) Aged Out No longer eligible based on patient's age to complete this topic Rotavirus Immunization Aged Out No lo nger eligible based on patient's age to complete this topic Insurance MEDICARE [facility] Care Teams Felt Strip Finisher Relationship Specialty Start Date End Date Laurie Bryan MD PCP - General Family Medicine 03/26/18
[2024-10-07 08:00] VITALS: BP 134/84; PULSE 62; RESP 16; TEMP 36.4; O2SAT 98
[2024-10-07 08:17] LABS: Hematocrit 37.3 % (42.0-52.0); Hemoglobin 12.1 g/dL (14.0-18.0); Immature Granulocyte Percent A 0.4 % (0-0.5); Lymphocytes Absolute Auto 1.52 K/mm3 (0.9-3.2); Mean Corpuscular HGB Conc 32.4 g/dl (32-36); Mean Corpuscular Hemoglobin 30.6 pg (26-34); Mean Corpuscular Volume 94.4 fl (80-100); Nucleated Red Blood Cells Absolute Auto 0.000 K/mm3 (0.0-0.012); Nucleated Red Blood Cells Perc 0.0 % (0.0-0.2); Platelet Count Result 188 k/mm3 (150-375); Red Blood Count 3.95 M/mm3 (4.6-6.20); White Blood Count 7.0 K/mm3 (4.5-10.0)
[2024-10-07 08:34] LABS: INR 1.9; Prothrombin Time 21.8 Seconds (11.1-14.7)
[2024-10-07 08:45] LABS: Anion Gap 7 mmol/L (4-12); Blood Urea Nitrogen 18 mg/dL (9-20); Calcium 9.4 mg/dL (8.4-10.2); Carbon Dioxide 25 mmol/L (22-30); Chloride 106 mmol/L (98-107); Estimated CRCL calculation 56 ml/min; Estimated Glomerular Filt Rate > 60; Glucose 82 mg/dL (65-110); Potassium 4.1 mmol/L (3.4-5.0); Sodium 138 mmol/L (137-145)
[2024-10-07 08:54] VITALS: BP 130/86; PULSE 60; RESP 16; TEMP 36.5; O2SAT 99
--- NOTE | 2024-10-07 09:07 | ED_ITS ---
HPI - Extremity Problem General Chief complaint: Extremity Problem,Nontraumatic Stated complaint: Leg wound bleeding Time Seen by Provider: 10/07/24 07:12 History of Present Illness HPI Narrative: 84 year old with a history of atrial fibrillation on Eliquis here with a complains of bleeding from left leg. Patient states that he was in the shower all of a sudden he started to bleed from 1 of his varicose veins. by the time he got to the ER bleeding subsided . He has no other complaints Onset (ago): hour(s) (1) Location: lower extremity (left) Relieving factors: nothing Exacerbating factors: nothing Associated symptoms: denies other symptoms Related Data Home Medications ?Medication ?Instructions ?Recorded ?Confirmed ?Last Taken ?Type flaxseed 1 ea PO DAILY 02/19/22 10/05/24 1 Week Ago History ~11/25/23 tavaborole 5 % topical solution 1 applic topical DAILY 04/12/24 10/05/24 Unknown History with applicator amiodarone 200 mg tablet 100 mg PO .QOD 04/28/24 10/05/24 Unknown History cholecalciferol (vitamin D3) 50 50 mcg PO DAILY 04/28/24 10/05/24 Unknown History mcg (2,000 unit) capsule sodium chloride 0.65 % nasal spray 2 spray intranasal QID PRN 07/01/24 10/05/24 Unknown History aerosol ([place] Saline) ipratropium bromide 42 mcg (0.06 intranasal 07/05/24 10/05/24 Unknown History %) nasal spray Allergies Allergy/AdvReac Type Severity Reaction Status Date / Time No Known Allergies Allergy Verified 10/07/24 05:28 Review of Systems 2 Review of Systems: All systems reviewed & are unremarkable except as noted in HPI and below Constitutional: Constitutional: Reports no additional constitutional complaints Eyes: Eyes: Reports no additional eye complaints Cardiovascular: Cardiovascular: Reports no additional cardiovascular complaints Respiratory: Respiratory: Reports no additional respiratory complaints Gastrointestinal: Gastrointestinal: Reports no additional gastrointestinal complaints Musculoskeletal: Musculoskeletal: Reports no additional musculoskeletal complaints Neurologic: Reports system reviewed and no additional complaints, except as documented PMFSH Past Medical History Medical History Allergic rhinitis Osteoarthritis Osteoarthritis of hands, bilateral Family hx of colon cancer History of colon polyps Hematuria Chronic lower back pain Peripheral neuropathy Anemia On amiodarone therapy Bilateral lower extremity pain Hypothyroidism Varicose veins of both lower extremities JAMILAH positive has seen Rheumatology all the workup was negative except positive JAMILAH. 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, urethral dilatation History of total right knee replacement History of arthroplasty of left knee (~04/23/22) History of bladder surgery (~02/2022) s/p TURBT H/O elbow surgery H/O varicose vein ligation and stripping 2019 H/O right inguinal hernia repair (~12/2001) H/O left inguinal hernia repair (~03/1977) History of appendectomy (~1956) History of tonsillectomy (~1950) Family History Family History Sibling Family history of cardiovascular disease Family history of sleep apnea Family history of malignant neoplasm of stomach Family history of malignant neoplasm of gastrointestinal tract Family history of malignant neoplasm of breast Family history of lymphoma Grandparent Family history of malignant neoplasm Family history of primary malignant neoplasm of liver Father Family history of malignant neoplasm of gastrointestinal tract Other Carcinoma of colon Social History Social History Social History: patient lives at home with his Katy Samuels. Katy Samuels will be his surrogate if needed. He also stated that he has a living well. He does have 3 children. He denies having any pets. He wishes to be a full code for now. Smoking status: Never smoker Second hand tobacco smoke exposure: No Alcohol intake: current Drinks per week: 0 Alcohol use details: OCCASIONALLY only through special events Substance use: never Substance use type: does not use Lack of Transportation: No Lack of Food: Never True Current Housing: I Have Housing Concerned About Future Housing: No Difficulty Paying Gas/Electric Bills: No Difficulty Paying for Meds: No Currently Unemployed: No Education: High School Diploma/GED Difficulty w/ Childcare or Family Care: No Living arrangements: with family Additional living arrangements comments: SPOUSE Occupation/Education: retired 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 HEAD: Normocephalic, atraumatic. EYES: PERRLA and EOMI. ENT: Nares clear, no rhinorrhea or epistaxis. Mucous membranes moist. NECK: Supple. CHEST: Clear to auscultation. No respiratory distress. HEART: Regular rate and rhythm. No murmur heard. Normal peripheral pulses. EXTREMITIES: Normal range of motion. No edema. has multiple superficial spider veins , no active bleeding. SKIN: Warm, dry, no rash. NEURO: No focal deficits. Alert and oriented x3. PSYCH: Normal mood and affect. Course Course Emergency Course: Notified him about his lab work. It is no further bleeding while he was here in the ER. Did place some [place] dressing. Advised him to keep his leg elevated and pressure if bleeding reoccurs Vital Signs Vital signs: Vital Signs Temperature 37.0 C 10/07/24 05:22 Pulse Rate 66 10/07/24 05:22 Respiratory Rate 17 10/07/24 05:22 Blood Pressure 138/96 H 10/07/24 05:22 Pulse Oximetry 99 10/07/24 05:22 Oxygen Delivery Room Air 10/07/24 05:22 Temperature 36.5 C 10/07/24 08:54 Pulse Rate 60 10/07/24 08:54 Respiratory Rate 16 10/07/24 08:54 Blood Pressure 130/86 10/07/24 08:54 Pulse Oximetry 99 10/07/24 08:54 Oxygen Delivery Room Air 10/07/24 05:22 MDM - Extremity (Nontraumatic) Lab Data 10/07/24 08:11 10/07/24 08:11 Labs: Lab Results 10/07/24 Range/Units 08:11 WBC 7.0 (4.5-10.0) K/mm3 RBC 3.95 L (4.6-6.20) M/mm3 Hgb 12.1 L (14.0-18.0) g/dL Hct 37.3 L (42.0-52.0) % MCV 94.4 (80-100) fl MCH 30.6 (26-34) pg MCHC 32.4 (32-36) g/dl RDW 13.5 (11.5-14.5) % Plt Count 188 (150-375) k/mm3 MPV 9.5 (7.4-10.4) fl Immature Gran % (Auto) 0.4 (0-0.5) % Neut % (Auto) 61.6 (45.5-73.1) % Lymph % (Auto) 21.9 (18.3-44.2) % Ramsey % (Auto) 12.4 H (2.6-8.5) % Eos % (Auto) 2.7 (0-4.4) % Baso % (Auto) 1.0 (0.2-1.2) % Lymph # (Auto) 1.52 (0.9-3.2) K/mm3 Ramsey # (Auto) 0.9 H (0.1-0.6) K/mm3 Eos # (Auto) 0.2 (0-0.3) K/mm3 Baso # (Auto) 0.1 (0.0-0.1) K/mm3 Abs Immat Gran (auto) 0.03 (0.00-0.031) K/mm3 Absolute Neuts (auto) 4.3 (1.3-6.7) K/mm3 Absolute Nucleated RBC 0.000 (0.0-0.012) K/mm3 Nucleated RBC % 0.0 (0.0-0.2) % PT 21.8 H (11.1-14.7) Seconds INR 1.9 Sodium 138 (137-145) mmol/L Potassium 4.1 (3.4-5.0) mmol/L Chloride 106 (98-107) mmol/L Carbon Dioxide 25 (22-30) mmol/L Anion Gap 7 (4-12) mmol/L BUN 18 (9-20) mg/dL Creatinine 0.93 (0.7-1.3) mg/dL Estim Creat Clear Calc 56 ml/min Estimated GFR > 60 (59 - ) Glucose 82 (65-110) mg/dL Calcium 9.4 (8.4-10.2) mg/dL Discharge Plan Discharge Clinical Impression: Bleeding from varicose veins of left lower extremity Patient Disposition: Home Condition: Stable Instructions: Acute Wounds (ED) Patient Language: Malaysian Prescriptions: No Action ipratropium bromide 42 mcg (0.06 %) spray,non-aerosol INTRANASAL cholecalciferol (vitamin D3) 50 mcg (2,000 unit) capsule 50 mcg PO DAILY amiodarone 200 mg tablet 100 mg PO .QOD [place] Saline 0.65 % aerosol,spray 2 spray intranasal QID PRN tavaborole 5 % solution with applicator 1 applic topical DAILY flaxseed Powder 1 ea PO DAILY Xarelto 20 mg tablet See Rx Instructions .ROUTE .COMPLEX Qty: 90 2RF Dose Instruction: TAKE 1 TABLET BY MOUTH DAILY - ADMINISTER WITH EVENING MEAL Rx Instructions: TAKE 1 TABLET BY MOUTH DAILY - ADMINISTER WITH EVENING MEAL Follow-up/Referrals: Glenys Bryan MD [Primary Care Provider] - Time of Disposition: 09:20
== END 2024-10-07 09:42 | disposition home or self-care (01) ==
PROVIDERS: Emergency Provider Family Medicine; PCP Family Medicine
DX: I83.892 Varicose veins of left lower extremity with other complications (principal); I48.0 Paroxysmal atrial fibrillation; I34.1 Nonrheumatic mitral (valve) prolapse; E03.9 Hypothyroidism, unspecified; M19.042 Primary osteoarthritis, left hand; M19.041 Primary osteoarthritis, right hand; G62.9 Polyneuropathy, unspecified; G47.33 Obstructive sleep apnea (adult) (pediatric); Z96.653 Presence of artificial knee joint, bilateral; Z86.0100 Personal history of colon polyps, unspecified; Z86.2 Personal history of diseases of the blood and blood-forming organs and certain disorders involving the immune mechanism; Z79.01 Long term (current) use of anticoagulants; Z79.899 Other long term (current) drug therapy
CPT/HCPCS: 36415; 80048; 85025; 85610; 99283